=== PATIENT | male | born 1940 | race Caucasian/White ===

== ENCOUNTER 2018-07-04 22:53 | Inpatient (IN) | payer OTHER ==
[2018-07-04 23:28] LABS: Absolute Lymphocytes (CBC) 3.2 K/uL (0.7-4.9); Absolute Monocytes 0.9 K/uL (0.1-1.3); Basophils % 0.5 % (0-1.3); Eosinophils % 0.5 % (0-4.4); Hematocrit 46.9 % (39.6-49.0); Lymphocytes % 28.9 % (15.3-44.8); MCH 30.5 pg (27.0-35.0); MCV 91.5 fL (80-100); Monocytes % 7.7 % (3.3-12.3); RBC Red Blood Cell Count 5.13 M/uL (4.33-5.43)
[2018-07-04 23:29] LABS: Protime INR 0.97
[2018-07-04 23:38] LABS: Arterial Blood Carboxyhemoglob 1.3 % (0-1.5); Blood Gas Oxyhemoglobin 88.8 % (94-97); Blood O2 Saturation 90.9 % (92-98.5)
[2018-07-04 23:46] LABS: Albumin 3.7 g/dL (3.4-5.0); Bilirubin Direct 0.2 mg/dL (0-0.2); Bilirubin Total 0.5 mg/dL (0.2-1.0); Magnesium 2.3 mg/dL (1.8-2.4); Potassium 3.9 mmol/L (3.5-5.1); Troponin (Emerg Dept Use Only) 0.02 ng/mL (0.0-0.045)
--- NOTE | 2018-07-04 23:56 | ER ---
Nurse's Notes [facility] Name: John Jr Age: 77 yrs Sex: Male : 1940 Arrival Date: 07/04/2018 Time: 23:00 Bed 3 Private MD: Diagnosis: Dyspnea;Hypoxemia;Chronic obstructive pulmonary disease with (acute) exacerbation;Alcohol abuse with intoxication Presentation: 07/04 23:03 Presenting complaint: EMS states: he was drinking and started having shortness of bb breath. Transition of care: patient was not received from another setting of care. Onset of symptoms was July 04, 2018. Risk Assessment: Do you want to hurt yourself or someone else? Patient reports no desire to harm self or others. Initial Sepsis Screen: Does the patient meet any 2 criteria? RR > 20 per min. HR > 90 bpm. Yes Does the patient have a suspected source of infection? Yes:. Care prior to arrival: None. 23:03 Method Of Arrival: EMS: [facility] bb 23:03 Acuity: YAZMIN 2 bb Historical: - Allergies: 23:06 Iodine; bb - PMHx: 23:06 COPD; Gastric Reflux; bb - PSHx: 23:06 cardiac stent; Hernia repair; dental implants; bb - Immunization history:: Adult Immunizations unknown. - Social history:: Patient uses alcohol, patient/guardian reports recent binge of alcohol consumption. Smoking status: Patient/guardian denies using tobacco. - Family history:: not pertinent. - Ebola Screening: : No symptoms or risks identified at this time. Screenin:55 Abuse screen: Denies threats or abuse. Denies injuries from another. Nutritional aa1 screening: No deficits noted. Tuberculosis screening: No symptoms or risk factors identified. Fall Risk None identified. Assessment: 22:55 General: Appears in no apparent distress. uncomfortable, Behavior is appropriate for aa1 age, agitated. Pain: Denies pain. Neuro: Level of Consciousness is awake, alert, obeys commands, Oriented to person, place, time, situation, Moves all extremities. Speech is normal. Cardiovascular: Denies chest pain, palpitations, Heart tones S1 S2 present Rhythm is regular. Respiratory: Reports shortness of breath at rest labored breathing Airway is patent Respiratory effort is labored, pursed lip, Respiratory pattern is symmetrical, tachypnea Breath sounds with wheezes bilaterally. the patient has moderate shortness of breath. GI: No signs and/or symptoms were reported involving the gastrointestinal system. : No signs and/or symptoms were reported regarding the genitourinary system. EENT: No signs and/or symptoms were reported regarding the EENT system. Derm: Skin is intact, is healthy with good turgor, Skin is pink, warm \T\ dry. Musculoskeletal: Circulation, motion, and sensation intact. Capillary refill < 3 seconds, Range of motion: intact in all extremities. 23:30 Reassessment: Patient appears in no apparent distress at this time. Patient and/or aa1 family updated on plan of care and expected duration. Pain level reassessed. Pt reports his SOB has greatly improved Patient denies pain at this time. Patient states feeling better. 07/05 00:00 Reassessment: Patient appears in no apparent distress at this time. Patient and/or aa1 family updated on plan of care and expected duration. Pain level reassessed. Patient is alert, oriented x 3, equal unlabored respirations, skin warm/dry/pink. Awaiting admission orders. 00:20 Reassessment: Bed assignment received; awaiting admission orders from Dr. Zazueta. aa1 01:00 Reassessment: Patient appears in no apparent distress at this time. Patient and/or aa1 family updated on plan of care and expected duration. Pain level reassessed. Patient is alert, oriented x 3, equal unlabored respirations, skin warm/dry/pink. Still awaiting admission orders from Dr. Zazueta. 02:28 Reassessment: Patient appears in no apparent distress at this time. Patient and/or aa1 family updated on plan of care and expected duration. Pain level reassessed. Patient is alert, oriented x 3, equal unlabored respirations, skin warm/dry/pink. Pt still awaiting admission orders from Dr. Zazueta. refrigeration supervisor notified Dr. Zazueta and requested orders to be placed in [facility]. 03:14 Reassessment: Patient appears in no apparent distress at this time. Patient and/or aa1 family updated on plan of care and expected duration. Pain level reassessed. Patient is alert, oriented x 3, equal unlabored respirations, skin warm/dry/pink. Still awaiting admission orders. 04:00 Reassessment: report called to Queenie GIFFORD for room 409. bb Vital Signs: 07/04 23:06 BP 169 / 128; Pulse 125; Resp 22 S; Pulse Ox 86% ; Weight 86.18 kg (R); bb 23:06 Temp 97.2(TE); aa1 23:21 BP 117 / 65; Pulse 118; Resp 22; Pulse Ox 98% on 40% Venturi mask; Pain 0/10; aa1 07/05 00:30 BP 147 / 84; Pulse 108; Resp 20; Pulse Ox 97% on Nebulizer Mask; aa1 01:49 BP 171 / 85; Pulse 94; Resp 20; Pulse Ox 97% on 4 lpm NC; Pain 0/10; aa1 02:41 BP 158 / 84; Pulse 102; Resp 20; Temp 97.6; Pulse Ox 95% on 4 lpm NC; Pain 0/10; aa1 03:30 BP 151 / 83; Pulse 105; Resp 20; Pulse Ox 96% on 4 lpm NC; aa1 04:00 BP 158 / 99; Pulse 102; Resp 20; Pulse Ox 96% on 4 lpm NC; aa1 ED Course: 07/04 22:55 Patient arrived in ED. aa1 22:55 Patient has correct armband on for positive identification. Bed in low position. Call aa1 light in reach. office inspector on. Pulse ox on. NIBP on. Warm blanket given. 22:55 First set of blood cultures drawn by me. Initial lab(s) drawn, by me, sent to lab. aa1 Inserted saline lock: 20 gauge in right forearm, using aseptic technique. Blood collected. 22:55 Maintain EMS IV. Dressing intact. Site clean \T\ dry. Gauge \T\ site: 20g L hand. Oxygen aa 1 administration via Venturi mask \T\ 15L/min - 50%. 23:01 Mason Smith MD is Attending Physician. samantha 23:05 Triage completed. bb 23:06 Arm band placed on Patient placed in an exam room, on a stretcher, on oxygen, on bb manager photo, on pulse oximetry. 23:09 XRAY Chest (1 view) In Process Unspecified. EDMS 23:13 Second set of blood cultures drawn by me. aa1 23:19 Shruthi Dorman RN is Primary Nurse. aa1 23:20 EKG done, by ED staff, reviewed by Mason Smith MD. cc 23:54 Ricci Zazueta MD is Hospitalizing Provider. [facility] 07/05 00:31 No provider procedures requiring assistance completed. Patient admitted, IV remains in aa1 place. Administered Medications: 00:26 Drug: Pepcid 20 mg Route: IVP; Site: left forearm; aa1 01:20 Follow up: Response: No adverse reaction aa1 00:27 Drug: Albuterol - atroVENT (3:1) (2.5 mg - 0.5 mg) 3 ml Route: Nebulizer; aa1 01:30 Follow up: Response: No adverse reaction aa1 00:27 Drug: levofloxacin 500 mg Volume: 100 ml; Route: IVPB; Infused Over: 60 mins; Site: aa1 right forearm; 01:30 Follow up: IV Status: Completed infusion aa1 00:27 Drug: Thiamine 100 mg Route: IV; Rate: bolus; Site: left forearm; aa1 00:30 Follow up: IV Status: Completed infusion aa1 00:28 Not Given (given CUFF STITCHER by EMS): SOLU-Medrol 125 mg IVP once aa1 00:50 Drug: Lovenox 1 mg/kg Route: Sub-Q; Site: right lower abdomen; aa1 02:00 Follow up: Response: No adverse reaction aa1 00:50 Drug: Lasix 20 mg Route: IVP; Site: right forearm; aa1 04:49 Follow up: Urine output 1800 ml aa1 00:50 Drug: Potassium Effervescent Tablet 25 mEq Route: PO; aa1 02:00 Follow up: Response: No adverse reaction aa1 00:50 Drug: NS 0.9% 1000 ml Route: IV; Rate: 75 ml/hr; Site: right forearm; aa1 01:19 Follow up: IV Status: Infusion continued upon admission aa1 Output: 04:49 Urine: 1800ml; Total: 1800ml. aa1 Outcome: 07/04 23:55 Decision to Hospitalize by Provider. [facility] 07/05 04:01 Admitted to Tele accompanied by tech, via stretcher, room 409, with chart, Report bb called to Queenie GIFFORD Condition: stable Instructed on the need for admit. 04:48 Patient left the ED. aa1 Signatures: Dispatcher [employer] EDMS Shruthi Dorman RN RN aa1 Mason Smith MD MD cha Ballard, Brenda, RN RN bb Chelsea Michaels Corrections: (The following items were deleted from the chart) 07/04 23:21 23:00 Patient arrived in ED. albertina aa1
--- NOTE | 2018-07-04 23:56 | EDPHYS ---
Physician Documentation [facility] Name: Jonh Jr Age: 77 yrs Sex: Male : 1940 Arrival Date: 07/04/2018 Time: 23:00 Bed 3 Private MD: ED Physician Mason Smith HPI: 07/04 23:04 This 77 yrs old Male presents to ER via Unassigned with complaints of samantha Shortness Of Breath. 23:04 The patient has shortness of breath at rest, with light activity. Onset: The samantha symptoms/episode began/occurred just prior to arrival. Duration: The symptoms are continuous, and are steadily getting worse. The patient's shortness of breath has no apparent modifying factors. Associated signs and symptoms: The patient has no apparent associated signs or symptoms. Severity of symptoms: At their worst the symptoms were moderate in the emergency department the symptoms have improved moderately. The patient has experienced similar episodes in the past, several times. Historical: - Allergies: 23:06 Iodine; bb - PMHx: 23:06 COPD; Gastric Reflux; bb - PSHx: 23:06 cardiac stent; Hernia repair; dental implants; bb - Immunization history:: Adult Immunizations unknown. - Social history:: Patient uses alcohol, patient/guardian reports recent binge of alcohol consumption. Smoking status: Patient/guardian denies using tobacco. - Family history:: not pertinent. - Ebola Screening: : No symptoms or risks identified at this time. ROS: 23:05 Constitutional: Negative for fever, chills, and weight loss, Eyes: Negative for injury, samantha pain, redness, and discharge, ENT: Negative for injury, pain, and discharge, Neck: Negative for injury, pain, and swelling, Cardiovascular: Negative for chest pain, palpitations, and edema, Abdomen/GI: Negative for abdominal pain, nausea, vomiting, diarrhea, and constipation, Back: Negative for injury and pain, : Negative for injury, bleeding, discharge, and swelling, MS/Extremity: Negative for injury and deformity, Skin: Negative for injury, rash, and discoloration, Neuro: Negative for headache, weakness, numbness, tingling, and seizure, Psych: Negative for depression, anxiety, suicide ideation, homicidal ideation, and hallucinations, Allergy/Immunology: Negative for hives, rash, and allergies, Endocrine: Negative for neck swelling, polydipsia, polyuria, polyphagia, and marked weight changes, Hematologic/Lymphatic: Negative for swollen nodes, abnormal bleeding, and unusual bruising. 23:05 Respiratory: Positive for cough, shortness of breath, at rest. Exam: 23:05 Constitutional: This is a well developed, well nourished patient who is awake, alert, samantha and in no acute distress. Head/Face: Normocephalic, atraumatic. Eyes: Pupils equal round and reactive to light, extra-ocular motions intact. Lids and lashes normal. Conjunctiva and sclera are non-icteric and not injected. Cornea within normal limits. Periorbital areas with no swelling, redness, or edema. ENT: Nares patent. No nasal discharge, no septal abnormalities noted. Tympanic membranes are normal and external auditory canals are clear. Oropharynx with no redness, swelling, or masses, exudates, or evidence of obstruction, uvula midline. Mucous membranes moist. Neck: Trachea midline, no thyromegaly or masses palpated, and no cervical lymphadenopathy. Supple, full range of motion without nuchal rigidity, or vertebral point tenderness. No Meningismus. Chest/axilla: Normal chest wall appearance and motion. Nontender with no deformity. No lesions are appreciated. Cardiovascular: Regular rate and rhythm with a normal S1 and S2. No gallops, murmurs, or rubs. Normal PMI, no JVD. No pulse deficits. Abdomen/GI: Soft, non-tender, with normal bowel sounds. No distension or tympany. No guarding or rebound. No evidence of tenderness throughout. Back: No spinal tenderness. No costovertebral tenderness. Full range of motion. Male : Normal genitalia with no discharge or lesions. Skin: Warm, dry with normal turgor. Normal color with no rashes, no lesions, and no evidence of cellulitis. MS/ Extremity: Pulses equal, no cyanosis. Neurovascular intact. Full, normal range of motion. Neuro: Awake and alert, GCS 15, oriented to person, place, time, and situation. Cranial nerves II-XII grossly intact. Motor strength 5/5 in all extremities. Sensory grossly intact. Cerebellar exam normal. Normal gait. Psych: Awake, alert, with orientation to person, place and time. Behavior, mood, and affect are within normal limits. 23:05 Respiratory: mild respiratory distress is noted, Respirations: labored breathing, that is mild, Breath sounds: decreased breath sounds, rhonchi, wheezing: expiratory is scattered. 07/05 00:00 Musculoskeletal/extremity: DVT Exam: No signs of deep vein thrombosis. no pain, no samantha swelling, no tenderness, negative Homans' sign noted on exam, no appreciated bluish discoloration, no erythema, no increased warmth. Vital Signs: 07/04 23:06 BP 169 / 128; Pulse 125; Resp 22 S; Pulse Ox 86% ; Weight 86.18 kg (R); bb 23:06 Temp 97.2(TE); aa1 23:21 BP 117 / 65; Pulse 118; Resp 22; Pulse Ox 98% on 40% Venturi mask; Pain 0/10; aa1 07/05 00:30 BP 147 / 84; Pulse 108; Resp 20; Pulse Ox 97% on Nebulizer Mask; aa1 01:49 BP 171 / 85; Pulse 94; Resp 20; Pulse Ox 97% on 4 lpm NC; Pain 0/10; aa1 02:41 BP 158 / 84; Pulse 102; Resp 20; Temp 97.6; Pulse Ox 95% on 4 lpm NC; Pain 0/10; aa1 03:30 BP 151 / 83; Pulse 105; Resp 20; Pulse Ox 96% on 4 lpm NC; aa1 04:00 BP 158 / 99; Pulse 102; Resp 20; Pulse Ox 96% on 4 lpm NC; aa1 MDM: 07/04 23:02 Patient medically screened. [facility] 23:07 Data reviewed: vital signs, nurses notes, lab test result(s), EKG, radiologic studies, [facility] plain films. 07/04 23:04 Order name: Basic Metabolic Panel; Complete Time: 23:49 [facility] 07/04 23:04 Order name: CBC with Diff; Complete Time: 23:49 [facility] 07/04 23:04 Order name: LFT's; Complete Time: 23:49 [facility] 07/04 23:04 Order name: Magnesium; Complete Time: 23:49 [facility] 07/04 23:04 Order name: NT PRO-BNP; Complete Time: 23:49 [facility] 07/04 23:04 Order name: PT-INR; Complete Time: 23:59 [facility] 07/04 23:04 Order name: Troponin (emerg Dept Use Only); Complete Time: 23:49 [facility] 07/04 23:04 Order name: XRAY Chest (1 view) [facility] 07/04 23:04 Order name: ETOH Level; Complete Time: 23:49 [facility] 07/04 23:04 Order name: Blood Culture Adult (2) [facility] 07/04 23:04 Order name: Procalcitonin [facility] 07/04 23:04 Order name: ABG; Complete Time: 23:49 [facility] 07/05 00:00 Order name: D-Dimer; Complete Time: 00:45 [facility] 07/05 03:37 Order name: Urine Dipstick--Ancillary (enter results) nd 07/04 23:04 Order name: EKG; Complete Time: 23:05 [facility] 07/04 23:04 Order name: Cardiac monitoring; Complete Time: 23:20 [facility] 07/04 23:04 Order name: EKG - Nurse/Tech; Complete Time: 23:20 [facility] 07/04 23:04 Order name: IV Saline Lock; Complete Time: 23:20 [facility] 07/04 23:04 Order name: Labs collected and sent; Complete Time: 23:20 [facility] 07/04 23:59 Order name: CONS Physician Consult [facility] 07/05 00:45 Order name: VQ scan (Nuclear Medicine) [facility] 07/04 23:04 Order name: O2 Per Protocol; Complete Time: 23:20 [facility] 07/04 23:04 Order name: O2 Sat Monitoring; Complete Time: 23:20 [facility] Administered Medications: 07/05 00:26 Drug: Pepcid 20 mg Route: IVP; Site: left forearm; aa1 01:20 Follow up: Response: No adverse reaction aa1 00:27 Drug: Albuterol - atroVENT (3:1) (2.5 mg - 0.5 mg) 3 ml Route: Nebulizer; aa1 01:30 Follow up: Response: No adverse reaction aa1 00:27 Drug: levofloxacin 500 mg Volume: 100 ml; Route: IVPB; Infused Over: 60 mins; Site: aa1 right forearm; 01:30 Follow up: IV Status: Completed infusion aa1 00:27 Drug: Thiamine 100 mg Route: IV; Rate: bolus; Site: left forearm; aa1 00:30 Follow up: IV Status: Completed infusion aa1 00:28 Not Given (given POTATO INSPECTOR by EMS): SOLU-Medrol 125 mg IVP once aa1 00:50 Drug: Lovenox 1 mg/kg Route: Sub-Q; Site: right lower abdomen; aa 02:00 Follow up: Response: No adverse reaction aa 00:50 Drug: Lasix 20 mg Route: IVP; Site: right forearm; aa1 04:49 Follow up: Urine output 1800 ml aa 00:50 Drug: Potassium Effervescent Tablet 25 mEq Route: PO; aa 02:00 Follow up: Response: No adverse reaction aa 00:50 Drug: NS 0.9% 1000 ml Route: IV; Rate: 75 ml/hr; Site: right forearm; aa 01:19 Follow up: IV Status: Infusion continued upon admission aa1 Disposition: 07/04/18 23:55 Hospitalization ordered by Ricci Zazueta for Inpatient Admission. Preliminary diagnosis are Dyspnea, Hypoxemia, Chronic obstructive pulmonary disease with (acute) exacerbation, Alcohol abuse with intoxication. - Bed requested for Telemetry/MedSurg (Inpatient). - Status is Inpatient Admission. aa1 - Condition is Stable. - Problem is new. - Symptoms have improved. UTI on Admission? No Signatures: Dispatcher [employer] EDMS Payton Mendoza RN RN Shruthi Dorman RN RN aa1 Mason Smith MD MD cha Ballard, Brenda, RN RN bb Corrections: (The following items were deleted from the chart) 00:07/04 23:55 Hospitalization Ordered by Ricci Zazueta MD for Inpatient Admission. Preliminary diagnosis is Dyspnea; Hypoxemia; Chronic obstructive pulmonary disease with (acute) exacerbation; Alcohol abuse with intoxication. Bed requested for Telemetry/MedSurg (Inpatient). Status is Inpatient Admission. Condition is Stable. Problem is new. Symptoms have improved. UTI on Admission? No. samantha 07/05 04:48 00:02 07/04/2018 23:55 Hospitalization Ordered by Ricci Zazueta MD for Inpatient aa1 Admission. Preliminary diagnosis is Dyspnea; Hypoxemia; Chronic obstructive pulmonary disease with (acute) exacerbation; Alcohol abuse with intoxication. Bed requested for Telemetry/MedSurg (Inpatient). Status is Inpatient Admission. Condition is Stable. Problem is new. Symptoms have improved. UTI on Admission? No. jacki
[2018-07-05] MEDS ORDERED: THIAMINE 200 MG/2 ML INJ ONE (00:22)
[2018-07-05] MEDS ORDERED: FAMOTIDINE 20 MG/2 ML VIAL IV ONE (00:22)
[2018-07-05] MEDS ORDERED: ALBUTEROL 2.5 MG/3 ML NEB SOL ONE (00:22)
[2018-07-05] MEDS ORDERED: Levofloxacin500mg IV 500 MG/100 ML BAG IV ONE (00:22)
[2018-07-05] MEDS ORDERED: IPRATROPIUM BROM 0.5MG/2.5ML ONE (00:22)
[2018-07-05] MEDS ORDERED: FUROSEMIDE 20 MG/ 2ML VIAL ONE (00:50)
[2018-07-05] MEDS ORDERED: POTASSIUM 25 MEQ EFFERV TAB ONE (00:51)
[2018-07-05] MEDS ORDERED: NA CHLORIDE 0.9% 1,000 ML ONE (00:51)
[2018-07-05] MEDS ORDERED: ENOXAPARIN 100 MG/ML SYR SQ ONE (00:51)
[2018-07-05] MEDS ORDERED: ACETAMINOPHEN 500 MG TAB PO PRN (02:57)
[2018-07-05] MEDS ORDERED: ONDANSETRON 4 MG/2 ML VIAL IV PRN (02:57)
[2018-07-05] MEDS ORDERED: MORPHINE 2 MG/ML SYR IV PRN (02:57)
[2018-07-05] MEDS ORDERED: NA CHLORIDE 0.9% 1,000 ML IV SCH (03:00)
[2018-07-05 05:10] LABS: Urine Blood NEGATIVE (NEG); Urine Glucose NEGATIVE (NEG); Urine Protein NEGATIVE (NEG)
[2018-07-05 05:22] VITALS: BMI 24.5
[2018-07-05] MEDS: METHYLPREDNISOLONE 125 MG INJ IV SCH ×3 (06:50→17:38)
[2018-07-05] MEDS ORDERED: MORPHINE 4 MG/ML SYR IV PRN (07:17)
[2018-07-05] MEDS ORDERED: HOME MED 1 EA UNK (Ipratropium/Albuterol Sulfate [Combivent Respimat 20-100 Mcg] 1 PUFF) IH PRN (07:54)
[2018-07-05] MEDS ORDERED: ALBUTEROL 2.5 MG/3 ML NEB SOL NEB SCH (08:00)
[2018-07-05] MEDS ORDERED: INFLUENZA VACCINE (for 3y+) 0.5 ML DOSE IMVAC ONE (08:00)
[2018-07-05] MEDS: IPRATROPIUM BROM 0.5MG/2.5ML NEB SCH ×3 (08:08→19:51)
[2018-07-05] MEDS ORDERED: FLUTICASONE IH SCH (09:00)
[2018-07-05] MEDS ORDERED: SALMETEROL IH SCH (09:00)
[2018-07-05] MEDS ORDERED: CEFTRIAXONE/SWI 1gm 1 GM/10 ML SYR IV SCH (09:00)
[2018-07-05] MEDS ORDERED: FAMOTIDINE 20 MG/2 ML VIAL IV SCH (09:00)
[2018-07-05] MEDS ORDERED: FAMOTIDINE 20 MG TAB PO SCH (09:00)
[2018-07-05] MEDS ORDERED: CEFTRIAXONE 1 GM/NS 50 ML 1 GM/50 ML BAG IV SCH (09:00)
[2018-07-05] MEDS: ASPIRIN EC 81 MG TAB PO SCH (10:53)
--- NOTE | 2018-07-05 11:12 | RAD REPORT ---
EXAM DESCRIPTION: US - Extrem Venous W Compress Cong - 07/05/2018 10:56 am CLINICAL HISTORY: pain Bilateral leg edema and swelling. COMPARISON: No comparisons TECHNIQUE: Real-time sonographic interrogation of the left and right lower extremity deep venous sys tems was performed. FINDINGS: Normal compressibility, flow augmentation, phasic flow and spontaneous flow is identified in both the left and right lower extremity deep venous systems. IMPRESSION: No sonographic evidence of left or right lower extremity deep venous thrombosis.
--- NOTE | 2018-07-05 11:12 | RAD REPORT ---
EXAM DESCRIPTION: NM - Vent Perfusion VQ Scan - 07/05/2018 10:24 am CLINICAL HISTORY: sob COMPARISON: Vent Perfusion VQ Scan dated 10/01/2016 TECHNIQUE: 21.2mCi Xe-133 gas inhaled and 7mCi Tc-MAA IV. Planar ventilation scan was performed in posterior projection after Xe-133 gas inhalation (wash-in, e quilibrium, and wash-out phases) followed by perfusion scan with Tc-MAA IV in multiple projections. Examination is correlated with recent chest radiograph. FINDINGS: Normal ventilation with appropriate wash-out and no significant air-trapping. No mismatched segmental perfusion defect. Heterogenous perfusion pattern is again noted, unchanged. IMPRESSION: Low probability of acute pulmonary embolism.
--- NOTE | 2018-07-05 11:16 | RAD REPORT ---
EXAM DESCRIPTION: RAD - Chest Single View - 07/04/2018 11:33 pm CLINICAL HISTORY: COUGH Chest pain. COMPARISON: Chest Pa And Lat (2 Views) dated 05/07/2017; Chest Single View dated 10/01/2016; CHEST PA AND LAT 2 VIEW dated 11/23/2009; CHEST PA AND LAT 2 VIEW dated 02/17/2004 FINDINGS: Portable technique limits examination quality. Ill-defined scarring/ fibrosis is suspected in both lung bases. Emphysematous changes are noted. A de finitive focal infiltrate not seen. The heart is upper limit normal in size. No displaced fractures. IMPRESSION: Fibrotic changes in both lung bases.
--- NOTE | 2018-07-05 11:25 | P.HP ---
Certification for Inpatient Patient admitted to: Inpatient With expected LOS: >2 Midnights Patient will require the following post-hospital care: None Practitioner: I am a practitioner with admitting privileges, knowledge of patient current condition, hospital course, and medical plan of care. Services: Services provided to patient in accordance with Admission requirements found in Title 42 Section 412.3 of the Code of Federal Regulations Patient History Date of Service: 07/05/18 Reason for admission: Shortness of breath History of Present Illness: Patient is a 77-year-old gentleman who presents to the hospital because he has noticed that he had some rattling in his chest. He has been on inhalers including Breo and Combivent for a few months. He has also been on prednisone since November. Patient has tried to wean himself off but he continues to have recurrent flare ups. He had weaned his prednisone down to 2 mg, then he started becoming more short of breath so he increased the prednisone on his own to 10 mg. Currently he is using a tapering dose of 10 mg then alternating it with 5 mg. Patient has a history of pulmonary fibrosis and his last pulmonary function test was about a year ago. He also had a MRI of his lungs to further evaluate his pulmonary situation. He also gets pulmonary rehab at [place]. Patient will need admission to the hospital for further treatment. Allergies iodine Allergy (Severe, Verified 09/07/15 11:56) Anaphylaxis Home Medications: Aspirin [Aspirin EC 81 MG] 162 mg PO DAILY 10/01/16 Famotidine 1 tab PO DAILY 10/01/16 Fluticasone/Salmeterol [Advair Hfa 115-21 Mcg Inhaler] 2 puff IH BID 10/01/16 Ipratropium/Albuterol Sulfate [Combivent Respimat 20-100 Mcg] 1 puff IH TID PRN 10/01/16 levoFLOXacin [Levaquin*] 500 mg PO DAILY #7 tab 10/03/16 - Past Medical/Surgical History Has patient received pneumonia vaccine in the past: Yes Diabetic: No -: COPD -: reflux -: stroke -: cardiac stents -: hernia repair -: dental implant -: skin cancer removed from back - Family History Sister Medical History: Hypertension Mother Medical History: Lung disease Notes: copd - Social History Smoking Status: Former smoker Alcohol use: Yes CD- Drugs: No Caffeine use: Yes Place of Residence: Home Review of Systems 10-point ROS is otherwise unremarkable Physical Examination - Vital Signs Temperature: 97.9 F Blood Pressure: 119/83 Pulse: 112 Respirations: 16 Pulse Ox (%): 94 - Physical Exam General: Alert, In no apparent distress, Oriented x3 HEENT: Atraumatic, PERRLA, Mucous membr. moist/pink, EOMI, Sclerae nonicteric Neck: Supple, 2+ carotid pulse no bruit, No LAD, Without JVD or thyroid abnormality Respiratory: Diminished, Expiratory wheezes, Rhonchi/gurgles Cardiovascular: Regular rate/rhythm, Normal S1 S2, No murmurs Gastrointestinal: Normal bowel sounds, Soft and benign, Non-distended, No tenderness Musculoskeletal: No clubbing, No swelling, No tenderness, Swelling Integumentary: No rashes, No breakdown Neurological: Normal gait, Normal speech, Normal strength at 5/5 x4 extr, Normal tone, Normal affect Lymphatics: No axilla or inguinal lymphadenopathy - Studies Laboratory Data (last 24 hrs) 07/04/18 23:04: PT 11.5, INR 0.97 07/04/18 22:55: WBC 11.1 H, Hgb 15.6, Hct 46.9, Plt Count 223 07/04/18 22:55: Sodium 139, Potassium 3.9, BUN 21 H, Creatinine 1.20, Glucose 148 H, Magnesium 2.3, Total Bilirubin 0.5, AST 19, ALT 24, Alkaline Phosphatase 42 L Assessment & Plan - Problems (Diagnosis) (1) COPD with acute exacerbation Current Visit: Yes Status: Acute (2) Idiopathic pulmonary fibrosis Current Visit: Yes Status: Acute (3) Chronic steroid use Current Visit: Yes Status: Acute (4) Hypoxia Onset Date: 10/02/16 Current Visit: No Status: Acute (5) Pneumonia Onset Date: 10/02/16 Current Visit: No Status: Acute (6) Alcohol use Current Visit: Yes Status: Acute - Plan 1. Continue with IV antibiotics 2. Awaiting blood culture 3. Repeat chest x-ray 4. Echocardiogram and pulmonary function testing as an outpatient 5. Awaiting Pulmonary consultation for this morning 6. Continue with nebs as needed 7. O2 per protocol 8. Continue with gentle hydration 9. Repeat labs including CBC and renal function in a.m. 10. GI and DVT prophylaxis Discharge Plan: Home Plan to discharge in: 24 Hours - Advance Directives Does patient have a Living Will: No Does patient have a Durable POA for Healthcare: No - Code Status/Comfort Care Code Status Assessed: Yes Code Status: Full Code Critical Care: No Time Spent Managing PTS Care (In Minutes): 50
[2018-07-05 12:11] LABS: Absolute Lymphocytes (CBC) 0.2 K/uL (0.7-4.9); Absolute Monocytes 0.1 K/uL (0.1-1.3); Absolute Neutrophil 5.1 K/uL (1.8-8.0); Basophils % 0.2 % (0-1.3); Hematocrit 36.4 % (39.6-49.0); MCH 30.9 pg (27.0-35.0); MCV 91.8 fL (80-100); MPV 8.2 fL (7.6-11.3); RBC Red Blood Cell Count 3.96 M/uL (4.33-5.43)
[2018-07-05 12:51] LABS: Blood Morphology Comment NOT SEEN (NOT SEEN); Platelet Estimate ADEQ; Urine White Blood Cell Casts OK
[2018-07-05 13:10] LABS: BUN Blood Urea Nitrogen 18 mg/dL (7-18); Bicarbonate 15 mmol/L (21-32); Glucose Level 158 mg/dL (74-106); Magnesium 1.2 mg/dL (1.8-2.4); Phosphorus 1.8 mg/dL (2.5-4.9); Sodium Level 147 mmol/L (136-145)
[2018-07-05 13:32] LABS: Potassium 2.8 mmol/L (3.5-5.1)
[2018-07-05] MEDS ORDERED: Magnesium Sulfate 2gm IVPB 2 G/50 ML BAG IV ONE (13:37)
[2018-07-05] MEDS ORDERED: CALCIUM GLUC 10% INJ 9.3 MEQ in NA CHLORIDE 0.9% 100 ML IV ONE (14:00)
[2018-07-05] MEDS: LEVALBUTEROL 0.63 MG/3 ML NEB NEB SCH ×2 (14:12→19:51)
[2018-07-05] MEDS: KCL 20 MEQ/100 mL IVPB 20 MEQ/100 ML BAG IV SCH ×3 (14:13→17:03)
[2018-07-05] MEDS ORDERED: POTASSIUM 25 MEQ EFFERV TAB PO ONE (17:03)
[2018-07-05] MEDS ORDERED: ENOXAPARIN 80 MG/0.8 ML SQ SCH (18:00)
[2018-07-05] MEDS: ARFORMOTEROL TARTRATE 15 MCG/2 ML VIAL.NEB NEB SCH (19:50)
[2018-07-05] MEDS ORDERED: METOPROLOL TAR 25 MG TAB PO ONE (20:54)
[2018-07-05] MEDS ORDERED: TEMAZEPAM 15 MG CAP PO PRN (21:03)
[2018-07-05 22:04] LABS: Absolute Lymphocytes (CBC) 0.4 K/uL (0.7-4.9); Absolute Monocytes 0.2 K/uL (0.1-1.3); Absolute Neutrophil 6.8 K/uL (1.8-8.0); Basophils % 0.1 % (0-1.3); Hematocrit 43.8 % (39.6-49.0); Lymphocytes % 5.3 % (15.3-44.8); MCH 30.5 pg (27.0-35.0); MCV 90.2 fL (80-100); MPV 8.1 fL (7.6-11.3); Protime INR 0.94; RBC Red Blood Cell Count 4.86 M/uL (4.33-5.43)
[2018-07-05 22:09] LABS: Albumin 3.5 g/dL (3.4-5.0); Bilirubin Total 0.5 mg/dL (0.2-1.0); Magnesium 2.8 mg/dL (1.8-2.4); Phosphorus 2.1 mg/dL (2.5-4.9); Potassium 4.8 mmol/L (3.5-5.1); Protein, Total 6.4 g/dL (6.4-8.2)
[2018-07-06] MEDS: LEVALBUTEROL 0.63 MG/3 ML NEB NEB SCH ×3 (01:13→13:47)
[2018-07-06] MEDS: IPRATROPIUM BROM 0.5MG/2.5ML NEB SCH ×3 (01:13→13:47)
[2018-07-06 05:44] LABS: Absolute Lymphocytes (CBC) 0.5 K/uL (0.7-4.9); Absolute Monocytes 0.3 K/uL (0.1-1.3); Absolute Neutrophil 7.7 K/uL (1.8-8.0); Basophils % 0.1 % (0-1.3); Hematocrit 40.6 % (39.6-49.0); MCH 31.2 pg (27.0-35.0); MCV 89.4 fL (80-100); MPV 8.3 fL (7.6-11.3); Monocytes % 3.7 % (3.3-12.3); RBC Red Blood Cell Count 4.54 M/uL (4.33-5.43)
[2018-07-06] MEDS ORDERED: FUROSEMIDE 40 MG/4 ML VIAL IV SCH ×2 (06:00→09:00)
[2018-07-06] MEDS ORDERED: METOPROLOL TAR 25 MG TAB PO SCH (06:00)
[2018-07-06] MEDS: METHYLPREDNISOLONE 125 MG INJ IV SCH ×3 (06:00→06:05)
[2018-07-06 06:01] LABS: Albumin 3.2 g/dL (3.4-5.0); Bilirubin Total 0.5 mg/dL (0.2-1.0); Potassium 4.5 mmol/L (3.5-5.1); Protein, Total 5.9 g/dL (6.4-8.2)
[2018-07-06] MEDS: LOSARTAN POTASSIUM 50 MG TABLET PO SCH ×2 (06:05→09:06)
--- NOTE | 2018-07-06 06:49 | EKG ---
Test Date: 2018-07-04 Test Time: 23:17:22 Tread Tuber Machine Operator: AISHWARYA MEASUREMENT RESULTS: Intervals: Rate: 108 CT: 156 QRSD: 88 QT: 360 QTc: 482 [place]: P: 86 CT: 156 QRS: 116 T: -13 INTERPRETIVE STATEMENTS: Sinus tachycardia with occasional premature ventricular complexes Possible Left atrial enlargement Right axis deviation Pulmonary disease pattern Septal infarct, age undetermined ST & T wave abnormality, consider inferior ischemia Abnormal ECG Compared to ECG 10/01/2016 07:15:49 Ventricular premature complex(es) now present Myocardial infarct finding still present Electronically Signed On 07-06-18 06:49:37 CDT by Ankit Sommer
[2018-07-06] MEDS: ARFORMOTEROL TARTRATE 15 MCG/2 ML VIAL.NEB NEB SCH (07:16)
--- NOTE | 2018-07-06 08:48 | P.CNS ---
Date of Consult: 07/06/18 Reason for Consult: Shortness of breath Chief Complaint: Shortness of breath History of Present Illness: Patient is 77 years of age well known to me with a history of COPD apparently he slipped and was unable to get his oxygen back up called EMS was admitted he is on chronic prednisone therapy 10 mg alternating with 5 currently taking Breo which is helping him. Arm for the past 3 months he has not been out of the house he has also chronic dizziness was diagnosed with orthostatic hypotension also has some tinnitus denies any fever or chills is back to his baseline Allergies iodine Allergy (Severe, Verified 09/07/15 11:56) Anaphylaxis Home Medications: Aspirin [Aspirin EC 81 MG] 162 mg PO DAILY 10/01/16 Famotidine 1 tab PO DAILY 10/01/16 Fluticasone/Vilanterol [Breo Ellipta 200-25 Mcg INH] 1 each IH DAILY 07/05/18 Olopatadine HCl 1 puff IH BID PRN 07/05/18 Umeclidinium [place] [Incruse Ellipta] 1 puff IH Q24H 07/05/18 predniSONE [Prednisone*] 1 mg PO DAILY 07/05/18 - Past Medical/Surgical History Diabetic: No -: COPD -: reflux -: stroke -: cardiac stents -: hernia repair -: dental implant -: skin cancer removed from back - Family History Sister Medical History: Hypertension Mother Medical History: Lung disease Notes: copd - Social History Alcohol use: Yes CD- Drugs: No Caffeine use: Yes Place of Residence: Home Review of Systems 10-point ROS is otherwise unremarkable Physical Examination Temp Pulse Resp BP Pulse Ox 97.5 F 94 H 20 183/83 H 92 07/06/18 04:00 07/06/18 06:22 07/06/18 04:00 07/06/18 06:22 07/06/18 04:00 General: Alert, Oriented x3 HEENT: Atraumatic Neck: Supple Respiratory: Clear to auscultation bilaterally, Diminished Cardiovascular: No edema, Regular rate/rhythm, Normal S1 S2 Gastrointestinal: Normal bowel sounds, Soft and benign - Problems (1) COPD with acute exacerbation Current Visit: Yes Status: Acute Plan: Patient is 77 years of age admitted with an exacerbation of his underlying COPD labs reviewed no evidence of thromboembolism no evidence of sepsis oxygenation satisfactory change management manager to p.o. prednisone 10 mg twice a day Dc metoprolol had spironolactone possible discharge today continue with Breo history of chronic dizziness check orthostatics changes
[2018-07-06 08:53] VITALS: BP 149/71; TEMP 97.1
[2018-07-06] MEDS ORDERED: predniSONE 10 MG TAB PO SCH (09:00)
[2018-07-06] MEDS ORDERED: SPIRONOLACTONE 25 MG TABLET PO SCH (09:00)
[2018-07-06] MEDS: ASPIRIN EC 81 MG TAB PO SCH (09:06)
--- NOTE | 2018-07-06 12:04 | P.PN ---
Subjective Date of Service: 07/06/18 Chief Complaint: Shortness of breath Pt seen and examined at bedside with RN. Chart reviewed. Case DW with Pulmonology. Pt is currently angry due to having small food portion on the plate. he has been unhappy with the cafeteria system here. Breathing better than before. Review of Systems 10-point ROS is otherwise unremarkable Physical Examination - Vital Signs Temperature: 97.1 F Blood Pressure: 149/71 Pulse: 88 Respirations: 18 Pulse Ox (%): 91 - Physical Exam General: Alert, In no apparent distress HEENT: Atraumatic, PERRLA, EOMI Neck: Supple, JVD not distended Respiratory: Normal air movement, Expiratory wheezes, Inspiratory wheezes Cardiovascular: Regular rate/rhythm, Normal S1 S2 Gastrointestinal: Normal bowel sounds, No tenderness Musculoskeletal: Other (Right Hand Petechial Brusing noted. ) Integumentary: No rashes Neurological: Normal speech, Normal tone, Normal affect Lymphatics: No axilla or inguinal lymphadenopathy - Studies Medications List Reviewed: Yes Assessment And Plan - Current Problems (Diagnosis) (1) COPD with acute exacerbation Current Visit: Yes Status: Acute Plan: Acute COPD exacerbation with chronic Disease with Home oxygen. -Sariah Shepherd Steriods and Oxygen for now -Pulmonology consulted appreciate reccs -Pt uses 4L NC at home and currently on 6L here with oxygen sat at 87% at rest and dropped to 80% on excretion -Will try to wean as tolerated to 4L NC (2) Idiopathic pulmonary fibrosis Current Visit: Yes Status: Chronic (3) Alcohol use Current Visit: Yes Status: Chronic Discharge Plan: Home Plan to discharge in: 48 Hours - Code Status/Comfort Care Code Status Assessed: Yes Critical Care: No
--- NOTE | 2018-07-06 12:57 | ECHO ---
HEIGHT: 6 ft 0 in WEIGHT: 181 lb 6.4 oz DATE OF STUDY: 07/06/[address]: Mason Smith MD 2-DIMENSIONAL: YES M.MODE: YES DOPPLER: YES COLOR FLOW: YES TDS: NO PORTABLE: NO DEFINITY: NO BUBBLE STUDY: NO DIAGNOSIS: SHORTNESS OF BREATH CARDIAC HISTORY: CATHERIZATION: NO SURGERY: NO PROSTHETIC VALVE: NO PACEMAKER: NO MEASUREMENTS (cm) DIASTOLIC (NORMALS) SYSTOLIC (NORMALS) IVSd 1.0 (0.6-1.2) LA Diam 3.5 (1.9-4.0) LVEF 63% LVIDd 3.6 (3.5-5.7) LVIDs 2.4 (2.0-3.5) %FS 33% LVPWd 1.1 (0.6-1.2) Ao Diam 3.2 (2.0-3.7) 2 DIMENSIONAL ASSESSMENT: RIGHT ATRIUM: NORMAL LEFT ATRIUM: NORMAL RIGHT VENTRICLE: NORMAL LEFT VENTRICLE: NORMAL TRICUSPID VALVE: NORMAL MITRAL VALVE: NORMAL PULMONIC VALVE: NORMAL AORTIC VALVE: NORMAL PERICARDIAL EFFUSION: NONE AORTIC ROOT: NORMAL LEFT VENTRICULAR WALL MOTION: NORMAL. DOPPLER/COLOR FLOW: MILD TRICUSPID REGURGITATION. ESTMATED RIGHT VENTRICULAR SYSTOLIC PRESSURE 40mmHg. (MILD PULMONARY HYPERTENSION). COMMENTS: NORMAL LEFT VENTRICULAR EJECTION FRACTION. MILD TRICUSPID REGURGITATION. OTHERWISE NORMAL 2D ECHO WITH DOPPLER. TECHNOLOGIST: LESTER MERAZ
[2018-07-06 14:14] VITALS: O2SAT 96
--- NOTE | 2018-07-17 17:27 | P.SSS ---
Patient History Date of Service: 07/17/18 Reason for admission: Shortness of breath History of Present Illness: Patient is a 77-year-old gentleman who presents to the hospital because he has noticed that he had some rattling in his chest. He has been on inhalers including Breo and Combivent for a few months. He has also been on prednisone since November. Patient has tried to wean himself off but he continues to have recurrent flare ups. He had weaned his prednisone down to 2 mg, then he started becoming more short of breath so he increased the prednisone on his own to 10 mg. Currently he is using a tapering dose of 10 mg then alternating it with 5 mg. Patient has a history of pulmonary fibrosis and his last pulmonary function test was about a year ago. He also had a MRI of his lungs to further evaluate his pulmonary situation. He also gets pulmonary rehab at [place]. Patient will need admission to the hospital for further treatment. Allergies iodine Allergy (Severe, Verified 09/07/15 11:56) Anaphylaxis Home Medications: Aspirin [Aspirin EC 81 MG] 162 mg PO DAILY 10/01/16 Famotidine 1 tab PO DAILY 10/01/16 Fluticasone/Vilanterol [Breo Ellipta 200-25 Mcg INH] 1 each IH DAILY 07/05/18 Olopatadine HCl 1 puff IH BID PRN 07/05/18 Umeclidinium [place] [Incruse Ellipta] 1 puff IH Q24H 07/05/18 predniSONE [Prednisone*] 1 mg PO DAILY 07/05/18 - Past Medical/Surgical History Has patient received pneumonia vaccine in the past: Yes Diabetic: No -: COPD -: reflux -: stroke -: cardiac stents -: hernia repair -: dental implant -: skin cancer removed from back - Family History Sister -: Hypertension Mother -: Lung disease Notes: copd - Social History Smoking Status: Former smoker Alcohol use: Yes CD- Drugs: No Caffeine use: Yes Place of Residence: Home Review of Systems 10-point ROS is otherwise unremarkable Physical Examination - Vital Signs Temperature: 97.1 F Blood Pressure: 149/71 Pulse: 88 Respirations: 18 Pulse Ox (%): 91 - Physical Exam General: Alert, In no apparent distress HEENT: Atraumatic, PERRLA, Mucous membr. moist/pink, EOMI, Sclerae nonicteric Neck: Supple, 2+ carotid pulse no bruit, No LAD, Without JVD or thyroid abnormality Respiratory: Normal air movement, Crackles/rales, Expiratory wheezes, Inspiratory wheezes Cardiovascular: Regular rate/rhythm, Normal S1 S2 Gastrointestinal: Normal bowel sounds, No tenderness Musculoskeletal: No tenderness Integumentary: No rashes Neurological: Normal gait, Normal speech, Normal strength at 5/5 x4 extr, Normal tone, Normal affect Lymphatics: No axilla or inguinal lymphadenopathy - Diagnosis (Problem(s)) (1) COPD with acute exacerbation Onset Date: 07/06/18 Status: Acute Plan: Acute COPD exacerbation with chronic Disease with Home oxygen. -Sariah Shepherd, Kristie and Oxygen for now -Pulmonology consulted appreciate reccs -Pt uses 4L NC at home and currently on 6L here with oxygen sat at 87% at rest and dropped to 80% on excretion -Will try to wean as tolerated to 4L NC Patient left AMA (2) Idiopathic pulmonary fibrosis Onset Date: 07/06/18 Status: Chronic (3) Alcohol use Onset Date: 07/06/18 Status: Chronic - Disposition Disposition: AMA-LEFT AGAINST MEDICAL ADVIC
== END 2018-07-06 17:24 | disposition left against medical advice (07) | DRG 192 ==
LOC: ER 22:53 → ERHOLD 07-05 00:07 → 4TH 07-05 04:03
PROVIDERS: ADMIT Hospitalist; ATTEND Hospitalist
DX: J44.1 Chronic obstructive pulmonary disease with (acute) exacerbation (principal); J84.112 Idiopathic pulmonary fibrosis; Z86.73 Personal history of transient ischemic attack (TIA), and cerebral infarction without residual deficits; Z99.81 Dependence on supplemental oxygen; Z87.891 Personal history of nicotine dependence; Z79.82 Long term (current) use of aspirin; Z79.52 Long term (current) use of systemic steroids
CPT/HCPCS: 36415; 71045; 78582; 80048; 80053; 80076; 80320; 81003; 82805; 83036; 83735; 83880; 84100; 84145; 84484; 85025; 85379; 85610; 85730; 87040; 93005; 93306; 93970; 94640; 96372; 97163; 99285; A9540; A9558; J0610; J0696; J1650; J1940; J2270; J2930; J3411; J3475; J7030; J7512; J7605

== ENCOUNTER 2019-10-17 21:16 | Inpatient (IN) | payer OTHER ==
--- OUTSIDE RECORDS SUMMARY | 2019-10-17 21:18 | XMS REPORT ---
:1940 [facility] Address [address] [place] [address] Dr. Dockery. [address] [place] [id number] Care Team Providers Name Role Phone Unavailable Unavailable Unavailable Problems This patient has no known problems. Allergies, Adverse Reactions, Alerts This patient has no known allergies or adverse reactions. Medications This patient has no known medications. Encounters Start End Encounter Admission Attending Care Care Encounter Date/Time Date/Time Type Type Clinicians Facility Department ID 2019-08-18 2019-08-18 Inpatient E [facility] MED [id number] 06:46:00 00:24:00 2019-08-18 2019-08-18 Outpatient [facility] JESS [id number] 00:24:00 00:24:00
[2019-10-17] MEDS ORDERED: Levofloxacin 750mg IV 750 MG/150 ML BAG IV ONE (21:33)
[2019-10-17] MEDS ORDERED: NA CHLORIDE 0.9% ONE (21:33)
[2019-10-17] MEDS ORDERED: METHYLPREDNISOLONE 125 MG INJ ONE (21:33)
[2019-10-17 22:05] LABS: Absolute Lymphocytes (CBC) 1.1 K/uL (0.7-4.9); Basophils % 0.4 % (0-1.3); Lymphocytes % 11.3 % (15.3-44.8); MPV 7.8 fL (7.6-11.3); RBC Red Blood Cell Count 5.77 M/uL (4.33-5.43)
[2019-10-17 22:19] LABS: Albumin 3.4 g/dL (3.4-5.0); Bilirubin Direct 0.3 mg/dL (0-0.2); Bilirubin Total 0.9 mg/dL (0.2-1.0); CKMB Creatine Kinase MB 3.9 ng/mL (0.3-3.6); Magnesium 2.3 mg/dL (1.8-2.4); Potassium 4.8 mmol/L (3.5-5.1); Protein, Total 6.5 g/dL (6.4-8.2); Troponin (Emerg Dept Use Only) 0.06 ng/mL (0.0-0.045)
[2019-10-17] MEDS ORDERED: LORazepam 2 MG/ML VIAL ONE (22:29)
[2019-10-17] MEDS ORDERED: LEVALBUTEROL 1.25 MG/3 ML NEB ONE (22:29)
[2019-10-17] MEDS ORDERED: IPRATROPIUM BROM 0.5MG/2.5ML ONE (22:32)
[2019-10-17] MEDS ORDERED: FUROSEMIDE 100 MG/10 ML VIAL IV ONE (22:36)
[2019-10-17 23:00] LABS: Blood Morphology Comment NOT SEEN (NOT SEEN); Platelet Estimate ADEQ
[2019-10-17 23:02] LABS: Urine Blood 2+ (NEG); Urine Glucose NEGATIVE (NEG); Urine Protein 1+ (NEG); Urine Specific Gravity 1.025 (1.005-1.030)
[2019-10-17] MEDS ORDERED: ALBUTEROL 2.5 MG/3 ML NEB SOL ONE (23:03)
[2019-10-17 23:13] LABS: Blood Gas Oxyhemoglobin 90.7 % (94-97); Blood O2 Saturation 92.1 % (92-98.5)
[2019-10-17 23:16] LABS: Protime INR 0.94
[2019-10-17 23:17] LABS: Arterial Blood Carboxyhemoglob 0.9 % (0-1.5); Blood Gas Oxyhemoglobin 91.2 % (94-97); Blood O2 Saturation 92.6 % (92-98.5)
[2019-10-17] MEDS ORDERED: Magnesium Sulfate 2gm IVPB 2 G/50 ML BAG IV ONE (23:26)
--- NOTE | 2019-10-17 23:31 | ER ---
Nurse's Notes [facility] Name: John Jr Age: 78 yrs Sex: Male : 1940 Arrival Date: 10/17/2019 Time: 21:17 Bed 4 Private MD: Diagnosis: Acute respiratory failure;Chronic obstructive pulmonary disease with (acute) exacerbation;Non-ST elevation (NSTEMI) myocardial infarction Presentation: 10/17 21:23 Presenting complaint: Patient states: PATIENT HAS HISTORY OF COPD. HE IS NORMALLY ON rv OXYGEN, HE WAS ALREADY AT 5 LPM WHEN WE ARRIVE. PUT HIM ON 6L PER NASAL CANNULA, GAVE HIM ALBUTEROL AND ATROVENT ON TRANSPORT. EMS states: PATIENT HAS HISTORY OF COPD. HE IS NORMALLY ON OXYGEN, HE WAS ALREADY AT 5 LPM WHEN WE ARRIVE. PUT HIM ON 6L PER NASAL CANNULA, GAVE HIM ALBUTEROL AND ATROVENT ON TRANSPORT. Transition of care: patient was not received from another setting of care. Onset of symptoms was October 17, 2019 at 21:00. Risk Assessment: Do you want to hurt yourself or someone else? Patient reports no desire to harm self or others. Care prior to arrival: None. 21:23 Method Of Arrival: EMS: [facility] rv 21:23 Acuity: YAZMIN 3 rv 21:33 Initial Sepsis Screen: Does the patient have a suspected source of infection?. rv 21:36 Initial Sepsis Screen:. rv 23:19 Initial Sepsis Screen: Does the patient meet any 2 criteria? No. Patient's initial rv sepsis screen is negative. Triage Assessment: 21:29 Respiratory: Reports shortness of breath at rest Onset: The symptoms/episode rv began/occurred gradually, the patient has moderate shortness of breath. Historical: - Allergies: 21:26 Iodine; rv - Home Meds: 21:26 Advair Diskus Inhl [Active]; aspirin 81 mg Oral TbEC 1 tab once daily [Active]; rv Famotidine Oral [Active]; ipratropium-albuterol inhalation Inhl [Active]; - PMHx: 21:26 COPD; Gastric Reflux; rv - PSHx: 21:26 None; rv - Immunization history:: Adult Immunizations up to date. - Social history:: Smoking status: Patient/guardian denies using tobacco, Patient/guardian denies using alcohol, street drugs, The patient lives with family. - Ebola Screening: : No symptoms or risks identified at this time. - Family history:: not pertinent. Screenin:28 Abuse screen: Denies threats or abuse. Denies injuries from another. Nutritional rv screening: No deficits noted. Tuberculosis screening: No symptoms or risk factors identified. Fall Risk None identified. Assessment: 21:27 General: Appears in no apparent distress. uncomfortable, Behavior is calm, cooperative. rv Pain: Denies pain. Neuro: Level of Consciousness is awake, alert, obeys commands, Oriented to person, place, time, situation. Cardiovascular: Patient's skin is warm and dry. Rhythm is sinus tachycardia. Respiratory: Airway is patent Respiratory effort is labored, Breath sounds are clear bilaterally. Derm: Skin is intact. 21:30 Reassessment: PATIENT HOOKED TO BIPAP MACHINE BY RT. Reassessment:. rv 22:48 Reassessment: Patient and/or family updated on plan of care and expected duration. Pain rv level reassessed. PATIENT IS RESTLESS. TRYING TO GET OUT OF THE BED AND TAKING THE MASK OFF. REFERRED TO DR TAMAYO. GIVEN BREATHING TREATMENT AND ATIVAN IV. PATIENT RESPONDING WELL WITH THE MACHINE AND MEDICINE. 23:47 Reassessment: Patient appears in no apparent distress at this time. Patient and/or rv family updated on plan of care and expected duration. Pain level reassessed. EXPRESSED "NO INTUBATION" WHEN DR TORRES ASKED REGARDING THE MATTER. 10/18 00:51 Reassessment: Patient and/or family updated on plan of care and expected duration. Pain ea level reassessed. Pt resting with eyes closed, Pt remains on the BiPap, admitted to ICU room 8, pt left ED via stretcher per nurse, emissions repair technician and RT. Accompanied by family. Pt tolerating well. Vital Signs: 10/17 21:21 BP 117 / 86; Pulse 110; Resp 16; Pulse Ox 86% on 6 lpm NC; Weight 83.91 kg; Height 6 rv ft. (182.88 cm); Pain 0/10; 21:21 Temp 97.6(TE); ea 22:00 BP 150 / 87; Pulse 104; Resp 21; Pulse Ox 96% on BiPAP; rv 22:30 BP 103 / 73; Pulse 115; Resp 19; Pulse Ox 99% on BiPAP; rv 23:00 BP 127 / 94; Pulse 125; Resp 24; Pulse Ox 97% on BiPAP; rv 23:30 BP 127 / 97; Pulse 128; Resp 24; Pulse Ox 94% on BiPAP; rv 10/18 00:03 Pulse 132; Resp 24; Pulse Ox 94% on 100% BiPAP; rv 00:35 BP 138 / 93; Pulse 132; Resp 24; Pulse Ox 98% on 100% BiPAP; rv 10/17 21:21 Body Mass Index 25.09 (83.91 kg, 182.88 cm) rv ED Course: 10/17 21:17 Patient arrived in ED. ds1 21:18 Ricci Tamayo MD is Attending Physician. ma2 21:20 Kehidne Blackwood RN is Primary Nurse. rv 21:25 Triage completed. rv 21:29 Arm band placed on right wrist. rv 21:29 Patient has correct armband on for positive identification. regional economist on. Pulse rv ox on. NIBP on. 21:33 Maintain EMS IV. Dressing intact. Good blood return noted. Site clean \\T\\ dry. Gauge \\T\\ rv site: G22 RIGHT AC. 21:48 XRAY CXR (1 view) In Process Unspecified. EDMS 21:50 First set of blood cultures drawn by me. rv 22:15 Second set of blood cultures drawn by ED staff. rv 22:51 Houser cath inserted, using sterile technique, 16 Fr., by me, balloon inflated, to rv gravity drainage, urine specimen collected. 23:00 Lab(s) recollected, by wa, sent to lab. rv 23:15 Inserted saline lock: 22 gauge in left antecubital area, using aseptic technique. rv 23:30 Ronaldo Torres is Hospitalizing Provider. ma2 10/18 00:36 No provider procedures requiring assistance completed. Patient admitted, IV remains in rv place. Administered Medications: 10/17 21:53 Drug: NS 0.9% 1000 ml Route: IV; Rate: 1 bolus; Site: right antecubital; rv 23:46 Follow up: IV Status: Order to discontinue infusion; IV Intake: 500ml rv 21:55 Drug: SOLU-Medrol 125 mg Route: IVP; Site: right antecubital; rv 22:15 Follow up: Response: No adverse reaction ea 22:15 Drug: levofloxacin 750 mg Volume: 150 ml; Route: IVPB; Infused Over: 90 mins; Site: rv right antecubital; 23:45 Follow up: IV Status: Completed infusion; IV Intake: 150ml rv 22:40 Drug: Xopenex 1.25 mg Route: Inhalation; rv 22:41 Drug: Ativan 1 mg Route: IVP; Site: right antecubital; ea 23:46 Follow up: Response: No adverse reaction rv 22:44 Drug: AtroVENT Aerosol 0.5 mg Route: Inhalation; ea 23:45 Follow up: Response: No adverse reaction rv 22:45 Drug: Lasix 100 mg Route: IVP; Site: right antecubital; rv 23:45 Follow up: Response: No adverse reaction rv 22:47 CANCELLED (Duplicate Order): Xopenex (3) 1.25 mg Inhalation once rv 23:27 Drug: Magnesium Sulfate 2 grams Route: IVPB; Infused Over: 2 hrs; Site: left rv antecubital; 10/18 00:28 Follow up: IV Status: Completed infusion rv 10/17 23:45 Drug: Lovenox 80 mg Route: Sub-Q; Site: right lower abdomen; rv 10/18 00:28 Follow up: Response: No adverse reaction rv 00:51 Not Given (pt unable to tolerate PO meds at this time): Aspirin Chewable Tablet 324 mg ea PO once; 81 mg tablets x 4 Intake: 10/17 23:45 IV: 150ml; Total: 150ml. rv 23:46 IV: 500ml; Total: 650ml. rv Outcome: 23:30 Decision to Hospitalize by Provider. de2 10/18 00:36 Admitted to ICU accompanied by nurse, accompanied by tech, via stretcher, room 5, with rv oxygen, on monitor, with chart, Report called to NIRAJ GIFFORD Condition: stable Instructed on the need for admit. 00:54 Patient left the ED. ea Signatures: Dispatcher [employer] Tamika Stephens Elena, RN RN Ricci Skinner MD MD ma2 Kehinde Blackwood RN RN rv
--- NOTE | 2019-10-17 23:32 | EDPHYS ---
Physician Documentation [facility] Name: John Jr Age: 78 yrs Sex: Male : 1940 Arrival Date: 10/17/2019 Time: 21:17 Bed 4 Private MD: ED Physician Ricci Salazar HPI: 10/17 23:24 This 78 yrs old Male presents to ER via EMS with complaints of Breathing ma2 Difficulty. 23:24 The patient has shortness of breath at rest. Onset: The symptoms/episode began/occurred ma2 gradually, 1 week(s) ago. Associated signs and symptoms: Pertinent positives: productive cough, Pertinent negatives: chest pain, diaphoresis, fever, hemoptysis, loss of consciousness, visual changes. Severity of symptoms: At their worst the symptoms were severe in the emergency department the symptoms are unchanged. The patient has experienced similar episodes in the past. Historical: - Allergies: 21:26 Iodine; rv - Home Meds: 21:26 Advair Diskus Inhl [Active]; aspirin 81 mg Oral TbEC 1 tab once daily [Active]; rv Famotidine Oral [Active]; ipratropium-albuterol inhalation Inhl [Active]; - PMHx: 21:26 COPD; Gastric Reflux; rv - PSHx: 21:26 None; rv - Immunization history:: Adult Immunizations up to date. - Social history:: Smoking status: Patient/guardian denies using tobacco, Patient/guardian denies using alcohol, street drugs, The patient lives with family. - Ebola Screening: : No symptoms or risks identified at this time. - Family history:: not pertinent. ROS: 23:24 Constitutional: Negative for fever, chills, and weight loss. ma2 23:24 All other systems are negative. Exam: 23:24 ENT: Nares patent. No nasal discharge, no septal abnormalities noted. Tympanic ma2 membranes are normal and external auditory canals are clear. Oropharynx with no redness, swelling, or masses, exudates, or evidence of obstruction, uvula midline. Mucous membranes moist. Neck: Trachea midline, no thyromegaly or masses palpated, and no cervical lymphadenopathy. Supple, full range of motion without nuchal rigidity, or vertebral point tenderness. No Meningismus. 23:24 Chest/axilla: Normal chest wall appearance and motion. Nontender with no deformity. No lesions are appreciated. Cardiovascular: Regular rate and rhythm with a normal S1 and S2. No gallops, murmurs, or rubs. Normal PMI, no JVD. No pulse deficits. Abdomen/GI: Soft, non-tender, with normal bowel sounds. No distension or tympany. No guarding or rebound. No evidence of tenderness throughout. Back: No spinal tenderness. No costovertebral tenderness. Full range of motion. MS/ Extremity: Pulses equal, no cyanosis. Neurovascular intact. Full, normal range of motion. Neuro: Awake and alert, GCS 15, oriented to person, place, time, and situation. Cranial nerves II-XII grossly intact. Motor strength 5/5 in all extremities. Sensory grossly intact. Cerebellar exam normal. Normal gait. 23:24 Constitutional: The patient appears alert, awake, in obvious distress, moderately distressed. 23:24 Respiratory: moderate respiratory distress is noted, Respirations: labored breathing, accessory muscle usage, Breath sounds: rales, that are moderate, are heard in the right middle lobe, rhonchi, wheezing: Vital Signs: 21:21 BP 117 / 86; Pulse 110; Resp 16; Pulse Ox 86% on 6 lpm NC; Weight 83.91 kg; Height 6 rv ft. (182.88 cm); Pain 0/10; 21:21 Temp 97.6(TE); ea 22:00 BP 150 / 87; Pulse 104; Resp 21; Pulse Ox 96% on BiPAP; rv 22:30 BP 103 / 73; Pulse 115; Resp 19; Pulse Ox 99% on BiPAP; rv 23:00 BP 127 / 94; Pulse 125; Resp 24; Pulse Ox 97% on BiPAP; rv 23:30 BP 127 / 97; Pulse 128; Resp 24; Pulse Ox 94% on BiPAP; rv 10/18 00:03 Pulse 132; Resp 24; Pulse Ox 94% on 100% BiPAP; rv 00:35 BP 138 / 93; Pulse 132; Resp 24; Pulse Ox 98% on 100% BiPAP; rv 10/17 21:21 Body Mass Index 25.09 (83.91 kg, 182.88 cm) rv MDM: 10/17 21:18 Patient medically screened. ma2 23:24 Differential diagnosis: Anemia Bronchitis Chronic Obstructive Pulmonary Disease ma2 Myocardial Infarction pneumonia, reactive airway disease, Unstable Angina. Antibiotic administration: Data reviewed: vital signs, nurses notes, lab test result(s). Counseling: I had a detailed discussion with the patient and/or guardian regarding: the historical points, exam findings, and any diagnostic results supporting the discharge/admit diagnosis, the presence of at least one elevated blood pressure reading (>120/80) during this emergency department visit, the need for further work-up and treatment in the hospital, he has elevated d dimer, however given presence of expiratory wheeze and improvement of symptoms with albuterol, risk of contrast load with ct pe rule out is higher at this time, given his troponin elevation will anticoagulate him at this time, no dvt on exam . 10/17 21:28 Order name: Blood Culture Adult (2) [facility] 10/17 21:28 Order name: BMP [facility] 10/17 21:28 Order name: CBC with Diff [facility] 10/17 21:28 Order name: Ckmb [facility] 10/17 21:28 Order name: CPK; Complete Time: 22:30 [facility] 10/17 21:28 Order name: D-Dimer; Complete Time: 23:28 [facility] 10/17 21:28 Order name: Hepatic Function; Complete Time: 22:30 [facility] 10/17 21:28 Order name: Lipase; Complete Time: 22:30 [facility] 10/17 21:28 Order name: Magnesium; Complete Time: 22:30 [facility] 10/17 21:28 Order name: NT PRO-BNP; Complete Time: 22:30 [facility] 10/17 21:28 Order name: PT-INR; Complete Time: 23:28 [facility] 10/17 21:28 Order name: Ptt, Activated; Complete Time: 23:28 [facility] 10/17 21:28 Order name: Troponin (emerg Dept Use Only); Complete Time: 22:30 [facility] 10/17 21:28 Order name: Flu; Complete Time: 22:30 [facility] 10/17 21:28 Order name: XRAY CXR (1 view) [facility] 10/17 21:28 Order name: Blood Culture [facility] 10/17 21:28 Order name: Basic Metabolic Panel; Complete Time: 22:30 [facility] 10/17 21:28 Order name: CBC with Automated Diff; Complete Time: 23: [facility] 10/17 21:28 Order name: CKMB Creatine Kinase MB; Complete Time: 22:30 EDMS 10/17 22:08 Order name: Manual Differential; Complete Time: 23:12 EDMS 10/17 22:47 Order name: Urine Dipstick--Ancillary (enter results); Complete Time: 23:12 mt 10/17 23:12 Order name: ABG Arterial Blood Gas EDMS 10/17 23:17 Order name: ABG Arterial Blood Gas; Complete Time: 23:28 EDMS 10/17 21:28 Order name: EKG; Complete Time: 21:29 ma2 10/17 21:28 Order name: Cardiac monitoring; Complete Time: 21:32 ma2 10/17 21:28 Order name: EKG - Nurse/Tech; Complete Time: 21:32 ma2 10/17 21:28 Order name: IV Saline Lock; Complete Time: 21:32 ma2 10/17 21:28 Order name: Labs collected and sent; Complete Time: 21:32 ma2 10/17 21:28 Order name: O2 Per Protocol; Complete Time: :32 ma2 10/17 21:28 Order name: O2 Sat Monitoring; Complete Time: 21:32 ma2 Administered Medications: 21:53 Drug: NS 0.9% 1000 ml Route: IV; Rate: 1 bolus; Site: right antecubital; rv 23:46 Follow up: IV Status: Order to discontinue infusion; IV Intake: 500ml rv 21:55 Drug: SOLU-Medrol 125 mg Route: IVP; Site: right antecubital; rv 22:15 Follow up: Response: No adverse reaction ea 22:15 Drug: levofloxacin 750 mg Volume: 150 ml; Route: IVPB; Infused Over: 90 mins; Site: rv right antecubital; 23:45 Follow up: IV Status: Completed infusion; IV Intake: 150ml rv 22:40 Drug: Xopenex 1.25 mg Route: Inhalation; rv 22:41 Drug: Ativan 1 mg Route: IVP; Site: right antecubital; ea 23:46 Follow up: Response: No adverse reaction rv 22:44 Drug: AtroVENT Aerosol 0.5 mg Route: Inhalation; ea 23:45 Follow up: Response: No adverse reaction rv 22:45 Drug: Lasix 100 mg Route: IVP; Site: right antecubital; rv 23:45 Follow up: Response: No adverse reaction rv 22:47 CANCELLED (Duplicate Order): Xopenex (3) 1.25 mg Inhalation once rv 23:27 Drug: Magnesium Sulfate 2 grams Route: IVPB; Infused Over: 2 hrs; Site: left rv antecubital; 10/18 00:28 Follow up: IV Status: Completed infusion rv 10/17 23:45 Drug: Lovenox 80 mg Route: Sub-Q; Site: right lower abdomen; rv 10/18 00:28 Follow up: Response: No adverse reaction rv 00:51 Not Given (pt unable to tolerate PO meds at this time): Aspirin Chewable Tablet 324 mg ea PO once; 81 mg tablets x 4 Disposition: 10/17 23:24 Critical Care:. ma2 Disposition: 10/17/19 23:30 Hospitalization ordered by Ronaldo Castillo for Inpatient Admission. Preliminary diagnosis are Acute respiratory failure, Chronic obstructive pulmonary disease with (acute) exacerbation, Non-ST elevation (NSTEMI) myocardial infarction. - Bed requested for Intensive Care Unit. - Status is Inpatient Admission. ea - Condition is Critical. - Problem is new. - Symptoms are unchanged. UTI on Admission? No Critical care time excluding procedures: 23:24 Critical care time: Bedside Care: 30 minutes, Consultation: 10 minutes, Family ma2 Intervention: 5 minutes. Total time: 45 minutes Signatures: Dispatcher [employer] Mitra Galicia RN RN cg Antunez, Elena, RN RN ea Alzahri, Mohammad, MD MD ma2 Vicente, Ronaldo, RN RN rv Corrections: (The following items were deleted from the chart) 22:47 22:31 Xopenex (3) 1.25 mg Inhalation once ordered. rv rv 10/18 00:21 10/17 23:30 Hospitalization Ordered by Ronaldo Castillo for Inpatient Admission. cg Preliminary diagnosis is Acute respiratory failure; Chronic obstructive pulmonary disease with (acute) exacerbation; Non-ST elevation (NSTEMI) myocardial infarction. Bed requested for Intensive Care Unit. Status is Inpatient Admission. Condition is Critical. Problem is new. Symptoms are unchanged. UTI on Admission? No. ma2 10/18 00:54 00:21 10/17/2019 23:30 Hospitalization Ordered by Ronaldo Castillo for Inpatient ea Admission. Preliminary diagnosis is Acute respiratory failure; Chronic obstructive pulmonary disease with (acute) exacerbation; Non-ST elevation (NSTEMI) myocardial infarction. Bed requested for Intensive Care Unit. Status is Inpatient Admission. Condition is Critical. Problem is new. Symptoms are unchanged. UTI on Admission? No. cg
[2019-10-17] MEDS ORDERED: ENOXAPARIN 80 MG/0.8 ML SQ ONE (23:40)
--- NOTE | 2019-10-17 23:57 | P.HP ---
Certification for Inpatient Patient admitted to: Inpatient With expected LOS: >2 Midnights Practitioner: I am a practitioner with admitting privileges, knowledge of patient current condition, hospital course, and medical plan of care. Services: Services provided to patient in accordance with Admission requirements found in Title 42 Section 412.3 of the Code of Federal Regulations Patient History Date of Service: 10/17/19 Reason for admission: Shortness of breath History of Present Illness: 78-year-old gentleman with a history of COPD, chronic respiratory failure on home oxygen coronary artery disease status post cardiac stent was brought to the emergency department due to progressive shortness of breath over a period of 2 weeks. Patient was obtunded and restless and could not provide any history when seen in the ED. Family reports the patient developed respiratory distress today. According to the family his symptoms were preceded by a bout of upper respiratory symptoms including runny nose, and nasal congestion. He was treated for sinusitis with antibiotics prescribed by an ENT specialist according to the . The patient was noted to be in acute respiratory distress. His chest x-ray demonstrated possible infiltrate in the left lower lobe and increased interstitial markings, worse in the lower lobes. BNP is elevated. Troponin is mildly elevated. The patient was given a breathing treatment-Xopenex and Atrovent, IV Solu-Medrol, IV Lasix and IV Levaquin. He was also given IV Ativan for agitation. Patient was obtunded during my examination and in moderate respiratory distress. Arterial blood gas on 100% FiO2 demonstrated borderline PO2. Patient is admitted for further management. Allergies iodine Allergy (Severe, Verified 09/07/15 11:56) Anaphylaxis Home Medications: Famotidine 1 tab PO DAILY 10/01/16 Ipratropium/Albuterol Sulfate [Combivent Respimat Inhal [place]] 1 puff IH PRN PRN 10/18/19 Umeclidinium [place] [Incruse Ellipta] 1 inh IH DAILY 10/18/19 predniSONE [Deltasone*] 10 mg PO TID 10/18/19 - Past Medical/Surgical History Diabetic: No -: COPD -: reflux -: stroke -: cardiac stents -: hernia repair -: dental implant -: skin cancer removed from back - Family History Sister -: Hypertension Mother -: Lung disease Notes: copd - Social History Alcohol use: Yes CD- Drugs: No Caffeine use: Yes Review of Systems is unable to be obtained (Due to altered mental status) Physical Examination - Physical Exam General: Moderate distress, Delirious HEENT: Atraumatic, PERRLA, Mucous membr. moist/pink, Sclerae nonicteric Neck: Supple, JVD not distended Respiratory: Diminished (Diffuse diminished breath sounds, prolonged expiratory phase), Expiratory wheezes, Other (Labored breathing, Upper airway transmitted sounds) Cardiovascular: No edema, Normal S1 S2, Other (Tachycardia) Capillary refill: <2 Seconds Gastrointestinal: Normal bowel sounds, Soft and benign, No tenderness Musculoskeletal: No swelling, Erythema (Bilateral legs) Integumentary: Erythema (Bilateral lower extremity venostasis dermatitis) Neurological: Other (Confused and restless, he moves all extremities spontaneously.) - Studies Laboratory Data (last 24 hrs) 10/17/19 22:55: PT 11.1, INR 0.94, APTT 21.2 L 10/17/19 21:50: WBC 9.5, Hgb 16.9, Hct 51.0 H, Plt Count 140 L 10/17/19 21:50: Sodium 140, Potassium 4.8, BUN 44 H, Creatinine 1.24, Glucose 179 H, Magnesium 2.3 D, Total Bilirubin 0.9, AST 21, ALT 42, Alkaline Phosphatase 56, Lipase 222 Microbiology Data (last 24 hrs): 10/17/19 21:40 Nasopharnyx Influenza Type A Antigen Screen - Final 10/17/19 21:40 Nasopharnyx Influenza Type B Antigen Screen - Final Assessment and Plan - Problems (Diagnosis) (1) COPD with acute exacerbation Onset Date: 07/06/18 Current Visit: No Status: Acute (2) Acute on chronic respiratory failure with hypoxemia Current Visit: Yes Status: Acute (3) Elevated d-dimer Current Visit: Yes Status: Acute (4) Elevated troponin Current Visit: Yes Status: Acute (5) Metabolic encephalopathy Current Visit: Yes Status: Acute (6) Pneumonia Onset Date: 10/02/16 Current Visit: No Status: Acute - Plan Admit to ICU BiPAP therapy. has declined intubation. Patient is full code Keep NPO Schedule Duoneb, IV Solu-Medrol, IV Levaquin Follow blood cultures Empirically treat for thromboembolism with full-dose Lovenox given elevated D- dimer and obtain CTA PE to rule out PE when clinically stable. Lovenox and also treat troponin elevation. Trend troponin. Obtain echocardiogram Consult to pulmonology Kody LIZAMA p.r.n. for agitation. - Advance Directives Does patient have a Living Will: No Does patient have a Durable POA for Healthcare: No
[2019-10-18] MEDS ORDERED: ALBUTEROL 2.5 MG/3 ML NEB SOL ONE (00:22)
[2019-10-18 01:31] VITALS: BMI 22.5
[2019-10-18] MEDS ORDERED: ONDANSETRON 4 MG/2 ML VIAL IV PRN (01:50)
[2019-10-18] MEDS ORDERED: ACETAMINOPHEN 650MG/RECT SUPP RECT PRN (01:50)
[2019-10-18] MEDS: ALBUTEROL 2.5 MG/3 ML NEB SOL NEB SCH ×2 (02:15→08:15)
[2019-10-18] MEDS ORDERED: HALOPERIDOL LACT 5 MG/ML INJ IV ONE (03:37)
[2019-10-18] MEDS: NA CHLORIDE 0.9% 1,000 ML IV SCH ×2 (03:39→23:26)
[2019-10-18] MEDS: IPRATROPIUM BROM 0.5MG/2.5ML NEB SCH ×2 (04:20→08:15)
[2019-10-18 05:12] LABS: Absolute Lymphocytes (CBC) 0.4 K/uL (0.7-4.9); Basophils % 0.2 % (0-1.3); Hematocrit 46.4 % (39.6-49.0); Lymphocytes % 3.5 % (15.3-44.8); MPV 8.2 fL (7.6-11.3); RBC Red Blood Cell Count 5.23 M/uL (4.33-5.43)
[2019-10-18 05:28] LABS: Phosphorus 5.3 mg/dL (2.5-4.9); Potassium 4.9 mmol/L (3.5-5.1)
[2019-10-18] MEDS: METHYLPREDNISOLONE 125 MG INJ IV SCH ×2 (06:13→11:15)
--- NOTE | 2019-10-18 08:00 | RAD REPORT ---
EXAM DESCRIPTION: Kristine Single View10/17/2019 9:48 pm CLINICAL HISTORY: Congestion COMPARISON: 2018 FINDINGS: Lungs are hyperaerated. Chronic interstitial lung opacities within the lung bases. The lungs appear clear of acute infiltrate. The heart is normal size IMPRESSION: COPD without visualization of an acute abnormality
[2019-10-18 08:48] LABS: Blood Gas Oxyhemoglobin 90.8 % (94-97); Blood O2 Saturation 92.2 % (92-98.5)
[2019-10-18] MEDS ORDERED: ENOXAPARIN 80 MG/0.8 ML SQ SCH ×2 (09:00→21:00)
--- NOTE | 2019-10-18 10:24 | EKG ---
Test Date: 2019-10-17 Test Time: 21:24:52 Wool Classer: LOUANN MEASUREMENT RESULTS: Intervals: Rate: 108 MD: 142 QRSD: 92 QT: 334 QTc: 447 [place]: P: 86 MD: 142 QRS: 124 T: -16 INTERPRETIVE STATEMENTS: Sinus tachycardia with premature atrial complexes Right axis deviation Incomplete right bundle branch block Right ventricular hypertrophy Cannot rule out Anteroseptal infarct, age undetermined ST & T wave abnormality, consider inferior ischemia Abnormal ECG Compared to ECG 07/04/2018 23:17:22 Atrial premature complex(es) now present Ventricular premature complex(es) no longer present Myocardial infarct finding still present ST (T wave) deviation still present Electronically Signed On 10-18-19 10:23:54 WAITER/WAITRESS TAKE OUT by Ankit Sommer
--- NOTE | 2019-10-18 11:16 | ECHO ---
HEIGHT: 6 ft 0 in WEIGHT: 166 lb 0 oz DATE OF STUDY: 10/18/[address]: gus marquez 2-DIMENSIONAL: YES M.MODE: YES DOPPLER: YES COLOR FLOW: YES TDS: YES PORTABLE: YES DEFINITY: NO BUBBLE STUDY: NO DIAGNOSIS: ELEVATED TROPONIN CARDIAC HISTORY: CATHERIZATION: NO SURGERY: NO PROSTHETIC VALVE: NO PACEMAKER: NO MEASUREMENTS (cm) DIASTOLIC (NORMALS) SYSTOLIC (NORMALS) IVSd 1.3 (0.6-1.2) LA Diam (1.9-4.0) LVEF 77% LVIDd 2.6 (3.5-5.7) LVIDs 1.5 (2.0-3.5) %FS 44% LVPWd 1.0 (0.6-1.2) Ao Diam 3.3 (2.0-3.7) 2 DIMENSIONAL ASSESSMENT: RIGHT ATRIUM: DILATED LEFT ATRIUM: NORMAL RIGHT VENTRICLE: DILATED LEFT VENTRICLE: NORMAL TRICUSPID VALVE: NORMAL MITRAL VALVE: NORMAL PULMONIC VALVE: NORMAL AORTIC VALVE: NORMAL PERICARDIAL EFFUSION: NONE AORTIC ROOT: NORMAL LEFT VENTRICULAR WALL MOTION: PARADOXICAL SEPTAL MOTION. DOPPLER/COLOR FLOW: MODERATE TRICUSPID REGURGITATION. SEVERE PULMONARY HYPERTENSION. ESTIMATED RIGHT VENTRICULAR SYSTOLIC PRESSURE 90 mmHg. COMMENTS: NORMAL LEFT VENTRICULAR EJECTION FRACTION. DILATED RIGHT ATRIUM AND RIGHT VENTRICLE. PARADOXICAL SEPTAL MOTION. MODERATE TRICUSPID REGURGITATION. SEVERE PULMONARY HYPERTENSION. TECHNOLOGIST: Dea GARLAND
[2019-10-18] MEDS ORDERED: propofoL 1,000 MG/100 ML VIAL IV ONE (12:18)
[2019-10-18] MEDS ORDERED: RSI MEDICATION KIT IV ONE (12:19)
--- NOTE | 2019-10-18 12:20 | P.CNS ---
Date of Consult: 10/18/19 Reason for Consult: Possible pulmonary embolism Chief Complaint: Shortness of breath History of Present Illness: Patient is 78 years of age well known to me is debilitated according to his developed worsening shortness of breath in the past week or so patient was recently discharged from [facility] with sepsis exacerbation of COPD/ pulmonary fibrosis was doing well during Fatou time at worse is : Last night advise him to bring in to the emergency room he is currently tachypneic and 100% BiPAP severe pulmonary hypertension possible underlying pulmonary embolism he is usually debilitated baseline Allergies iodine Allergy (Severe, Verified 09/07/15 11:56) Anaphylaxis Home Medications: Famotidine 1 tab PO DAILY 10/01/16 Ipratropium/Albuterol Sulfate [Combivent Respimat Inhal [place]] 1 puff IH PRN PRN 10/18/19 Umeclidinium [place] [Incruse Ellipta] 1 inh IH DAILY 10/18/19 predniSONE [Deltasone*] 10 mg PO TID 10/18/19 - Past Medical/Surgical History Diabetic: No -: COPD -: reflux -: stroke -: cardiac stents -: hernia repair -: dental implant -: skin cancer removed from back - Family History Sister Medical History: Hypertension Mother Medical History: Lung disease Notes: copd - Social History Alcohol use: Yes CD- Drugs: No Caffeine use: Yes Place of Residence: Home Review of Systems is unable to be obtained Physical Examination Temp Pulse Resp BP Pulse Ox 97.2 F 115 H 25 H 142/93 H 94 10/18/19 04:00 10/18/19 12:00 10/18/19 12:00 10/18/19 12:00 10/18/19 12:00 General: Severe distress HEENT: Atraumatic Neck: Supple Respiratory: Clear to auscultation bilaterally, Diminished Cardiovascular: No edema, Regular rate/rhythm, Normal S1 S2 Gastrointestinal: Normal bowel sounds, Soft and benign Musculoskeletal: No clubbing, No swelling Integumentary: No rashes, No breakdown Laboratory Data (last 24 hrs) 10/17/19 22:55: PT 11.1, INR 0.94, APTT 21.2 L 10/17/19 21:50: WBC 9.5, Hgb 16.9, Hct 51.0 H, Plt Count 140 L 10/17/19 21:50: Sodium 140, Potassium 4.8, BUN 44 H, Creatinine 1.24, Glucose 179 H, Magnesium 2.3 D, Total Bilirubin 0.9, AST 21, ALT 42, Alkaline Phosphatase 56, Lipase 222 - Problems (1) Respiratory failure Current Visit: Yes Status: Acute Plan: Patient is 78 years of age debilitated from his underlying COPD pulmonary fibrosis was recently discharged from [facility] became worse in the past week or so very short of breath brought here to the emergency room years severe pulmonary hypertension elevated D-dimer chest x-ray shows COPD changes no evidence of sepsis he has a metabolic acidosis discussed with family members and his gave plan to proceed to intubation CT pulmonary angiogram possible thrombolytics therapy if indicated also advised them about DNR also about the risk of bleeding if t-PA niece to be used in the understand Qualifiers: Chronicity: acute on chronic Critical Care: Yes Time Spent Managing Pts care (In Minutes): 60
[2019-10-18] MEDS ORDERED: propofoL 1,000 MG/100 ML VIAL IV PRN (12:27)
[2019-10-18] MEDS ORDERED: NA CHLORIDE 0.9% 250 ML IV PRN (12:27)
[2019-10-18] MEDS ORDERED: MIDAZOLAM HCL 2 MG/2 ML INJ IV PRN (12:27)
--- NOTE | 2019-10-18 12:32 | P.OP ---
Date of Service: 10/18/19 (Endotracheal intubation) Findings and Operative Technique Patient is 78 years of age admitted with acute respiratory distress failed BiPAP on 100% patient was electively intubated for the possibility of pulmonary embolism intubation was done without any difficulty woke [place] was visualized he was intubated with a size 7-1/2 tube using 60 mg of IV propofol patient tolerated the procedure very well did not experience any hypoxemia or significant hypertension chest x-ray will be performed
--- NOTE | 2019-10-18 13:04 | RAD REPORT ---
EXAM DESCRIPTION: Kristine Single View10/18/2019 12:55 pm CLINICAL HISTORY: Device placement endotracheal tube placement IMPRESSION: An endotracheal tube has been inserted with its tip 6.5 centimeters above the brittany. The tip of a nasogastric tube is not well visualized secondary to technical factors. It may lie withi n the esophagus. It is recommended that the patient have a film of the upper abdomen for further eval uation The exam was discussed with Janay in the Emergency Room
[2019-10-18] MEDS: LORazepam 2 MG/ML VIAL IV PRN (13:14)
[2019-10-18] MEDS: FENTANYL CITR 100 MCG/2 ML IV PRN (13:37)
--- NOTE | 2019-10-18 13:53 | RAD REPORT ---
EXAM DESCRIPTION: USExtrem Venous W Compress Bil10/18/2019 1:35 pm CLINICAL HISTORY: Bilateral leg swelling COMPARISON: 2017 FINDINGS: The common femoral, superficial femoral, popliteal and posterior tibial veins bilaterally are compressible and demonstrate augmentation. Doppler demonstrates good flow. IMPRESSION: No evidence of deep venous thrombosis involving either lower extremity.
--- NOTE | 2019-10-18 13:55 | RAD REPORT ---
EXAM DESCRIPTION: Kristine Single View10/18/2019 1:39 pm CLINICAL HISTORY: Device placement nasogastric tube placement IMPRESSION: A nasogastric tube is not included in the field of view which is the lower chest and abd omen. This indicates that the nasogastric tube lies within the mid esophagus
[2019-10-18] MEDS: LEVALBUTEROL 1.25 MG/3 ML NEB NEB SCH ×2 (14:02→20:10)
[2019-10-18 14:09] LABS: Blood Gas Oxyhemoglobin 72.2 % (94-97); Blood O2 Saturation 73.4 % (92-98.5)
--- NOTE | 2019-10-18 15:43 | CON ---
History Of Present Illness: Mr. Aldrich is 78. I am asked to see him because he is having runs of v entricular tachycardia, he has elevated troponins, came to the hospital with respiratory failure, nor keara intubation would have been done with his respiratory distress at the level that was last night and still is. However, his stated his wishes were not to be intubated ever and used to be DNR. There are no official DNR orders on the chart, however. The patient has long-standing very severe C OPD with BiPAP mask, breathing about 35 to 40 times a minute. He is alert but a little bit confused, very much struggling to breathe. His most recent arterial blood gas showed a pO2 of 68 with a pCO2 of 33, pH of 7.29. He has an elevated lactic acid level, elevated troponin levels also. Impression: His resuscitation status should be clear if were to resuscitating needs to be intubated in which case his ventricular tachycardia will probably go away. We could start amiodarone if it noe s not, but if he do not resuscitate, we need to make that clear in which case we would not be ocampo to try and treat the ventricular tachycardia. ALLI/ANNA Voice ID: [id number] Report ID: [id number]
--- NOTE | 2019-10-18 16:54 | RAD REPORT ---
EXAM DESCRIPTION: CT - Chest For Pe Angio - 10/18/2019 4:39 pm CLINICAL HISTORY: R/O PE, shortness of breath, intubation COMPARISON: Thorax Wo Con dated 05/07/2017; Chest Single View dated 10/18/2019 TECHNIQUE: Dynamically enhanced 3 mm thick images of the chest were obtained during administration o f approximately 150mL Isovue 370 IV contrast. Coronal and oblique MIP reconstruction images were gene rated and reviewed. Exam utilizes a protocol to evaluate the pulmonary arterial tree. All CT scans are performed using dose optimization technique as appropriate and may include automated exposure control or mA/KV adjustment according to patient size. FINDINGS: No pulmonary emboli are identified. Exam does have significant motion degradation of FX in the mid and lower lung love. Likelihood of an obscured pulmonary embolism is felt to be very low. The aorta as imaged shows no acute or suspicious finding. No pericardial thickening or effusion. Jammie ent has questionable left ventricular myocardial hypertrophy. CT sensitivity is limited in this diagn osis. Bulla and bleb formation is present. Patient has subpleural fibrotic scarring changes. This is most n otable in the lateral aspect of the lingula. Mainstem bronchi appear narrowed however assessment is l imited due to the substantial motion. No pleural effusion or pleural thickening. No mediastinal or hilar suspicious masses. No chest wall masses or abnormal axillary lymphadenopathy. Endotracheal tube is in place. Tip is just above the aortic arch level. IMPRESSION: No pulmonary emboli identified. Chronic lung parenchymal disease is present without acute component identified. Questionable left ventricular myocardial hypertrophy. CT sensitivity is limited.
[2019-10-18] MEDS: METHYLPREDNISOLONE 40 MG INJ IV SCH (18:21)
[2019-10-18] MEDS ORDERED: Levofloxacin 750mg IV 750 MG/150 ML BAG IV SCH (20:00)
[2019-10-18] MEDS: FAMOTIDINE 20 MG/2 ML VIAL IV SCH (21:00)
--- NOTE | 2019-10-18 23:19 | PN ---
Subjective: This patient appeared to be very stressful regarding to his breathing. He was put on the BiPAP, but he continued to experience labored breathing. Solar Sales Consultant discussed with his family and the patient was intubated. Review of Systems: Unavailable due to sedation. Physical Examination: General: Patient is intubated. Vital Signs: Temperature normal, heart rate 101, respiratory rate 14, blood pressure 126/65, oxygen saturation 97% with intubation. HEENT: Normocephalic, atraumatic. Intubated. Chest: Bilateral diffused wheezing and rhonchi. Heart: Normal S1, S2. Tachycardia. No murmur. Abdomen: Soft, nontender. Bowel sounds present. Extremities: No edema, no cyanosis. Neuro: Unavailable due to station. Skin: No rashes or lesion. Laboratory Data: WBC 12.1, hemoglobin 15.4, platelets 148. D-dimer 986. ABG 7.29, pCO2 of 33, pO2 of 68 with FiO2 of 100. Sodium 141, potassium 4.9, creatinine 1.3, glucose 234, magnesium of 3, phosphorous of 5.3. Troponin 0.08. Lactic acid 5.6. Imaging Study: Chest CTA: No pulmonary emboli identified. Chronic lung parenchymal disease without acute components identified. Questionable left ventricular hypertrophy. Assessment/plan: 1. Acute respiratory failure with hypoxia. This is likely due to chronic obstructive pulmonary disease exacerbation. D-dimer was elevated, however, chest CTA negative for pulmonary embolism. Patient was intubated and put on ventilator. Solar Sales Consultant was consulted. Continue Xopenex nebulization. Continue Levaquin. 2. Chronic obstructive pulmonary disease exacerbation, treated with nebulization. Continue IV Solu-Medrol. Pulmonology has been following this patient. 3. Elevated troponin, likely secondary to acute respiratory failure. I put a consult for musculoskeletal physiotherapist. 4. Metabolic encephalopathy. This is likely secondary to respiratory failure. Currently, the patient intubated and sedated. Initially, the declined intubation . Family decided intubation and ventilator after mapping technician discussed with the family. His prognosis is guarded at this point. QT/MODL Voice ID: [id number] Report ID: [id number] MTDD
[2019-10-19] MEDS: METHYLPREDNISOLONE 40 MG INJ IV SCH ×3 (01:53→16:27)
[2019-10-19] MEDS: LEVALBUTEROL 1.25 MG/3 ML NEB NEB SCH ×4 (02:05→19:58)
[2019-10-19 05:26] LABS: Absolute Lymphocytes (CBC) 0.5 K/uL (0.7-4.9); Basophils % 0.2 % (0-1.3); Hematocrit 37.8 % (39.6-49.0); MPV 8.3 fL (7.6-11.3); RBC Red Blood Cell Count 4.34 M/uL (4.33-5.43)
[2019-10-19 05:37] LABS: Magnesium 2.9 mg/dL (1.8-2.4); Phosphorus 2.9 mg/dL (2.5-4.9); Potassium 4.2 mmol/L (3.5-5.1)
[2019-10-19] MEDS: LORazepam 2 MG/ML VIAL IV PRN ×5 (06:00→22:36)
[2019-10-19] MEDS: FENTANYL CITR 100 MCG/2 ML IV PRN ×4 (06:01→20:30)
[2019-10-19 06:17] LABS: Arterial Blood Carboxyhemoglob 1.5 % (0-1.5); Blood Gas Oxyhemoglobin 86.7 % (94-97); Blood O2 Saturation 88.6 % (92-98.5)
--- NOTE | 2019-10-19 08:17 | P.PN ---
Subjective Date of Service: 10/19/19 Chief Complaint: Respiratory failure Patient's condition is stable he still very hypoxic there is no evidence of thromboembolism the TS go severe terminal COPD Review of Systems is unable to be obtained Physical Examination - Vital Signs Temperature: 98.1 F Blood Pressure: 111/59 Pulse: 97 Respirations: 14 Pulse Ox (%): 94 - Physical Exam General: Unresponsive Respiratory: Clear to auscultation bilaterally, Diminished Cardiovascular: No edema, Regular rate/rhythm - Studies Microbiology Data (last 24 hrs): 10/17/19 22:15 Blood - Blood Anaerobic Blood Culture - Final 10/17/19 21:50 Blood - Blood Anaerobic Blood Culture - Final Assessment & Plan - Problems (Diagnosis) (1) Respiratory failure Current Visit: Yes Status: Acute Plan: Patient admitted with respiratory failure no evidence of sepsis or DVT or PE continues to remain hypoxic echocardiogram did show severe pulmonary hypertension CT pulmonary angiogram shows extensive COPD with some pulmonary fibrosis continues to remain hypoxic his prognosis is very poor discuss with relatives regarding possible DNR withdrawal of care Qualifiers: Chronicity: acute on chronic
--- NOTE | 2019-10-19 08:51 | RAD REPORT ---
EXAM DESCRIPTION: RAD - Chest Single View - 10/19/2019 8:25 am CLINICAL HISTORY: COPD, shortness of breath, possible pneumonia COMPARISON: October 18 and October 17 portable images, October 18 CT chest TECHNIQUE: AP portable chest image was obtained 0802 hours . FINDINGS: Hyper expanded lung love noted with fibro emphysematous lung changes. This baseline estela shandra is stable. Minimal stranding in the lateral right base has not changed. Pleural and parenchymal o pacification in the left base partially obscuring the heart border and left hemidiaphragm are stable findings. No progressive left base process. Heart size and vasculature are normal. No pneumothorax. Endotracheal tube has not changed position. NG tube is no longer identified. PICC line has not change d position. IMPRESSION: Baseline COPD with left base pleural and parenchymal opacification stable from prior babak ging. No new or progressive cardiopulmonary finding. NG tube appears to have been removed. ET tube and PICC line are unchanged.
[2019-10-19] MEDS: FAMOTIDINE 20 MG/2 ML VIAL IV SCH ×2 (08:56→21:02)
[2019-10-19] MEDS ORDERED: ENOXAPARIN 40 MG/0.4 ML SQ SCH (09:00)
[2019-10-19] MEDS: NA CHLORIDE 0.9% 1,000 ML IV SCH ×2 (10:00→21:02)
--- NOTE | 2019-10-19 10:51 | RAD REPORT ---
EXAM DESCRIPTION: RAD - Chest Single View - 10/18/2019 9:13 pm CLINICAL HISTORY: PICC Placement TECHNIQUE: Single frontal view of the chest is submitted. COMPARISON: None available for comparison FINDINGS: Heart: The cardiothoracic silhouette is within normal limits. Lungs: Left basilar opacification. Minimal right basilar patchy opacity. Mediastinum: Thoracic aortic atherosclerosis. Pleura: Blunting of the left costophrenic angle. Bones: Intact Upper abdomen: Unremarkable Other: Right upper extremity PICC tip projects over the proximal to mid superior vena cava. Endotrach eal tube in place. The tip projects 7.4 cm proximal to the brittany. IMPRESSION: 1. Right upper extremity PICC tip projects over the proximal to mid superior vena cava . 2. Left greater than right basilar opacification (atelectasis and/or infiltrate). Possible small le ft pleural effusion. Electronically signed by: Ibis De Luna MD 10/18/2019 9:45 PM TAXATION INSPECTOR Due to temporary technical issues with the PACS/Fluency reporting system, reports are being signed by the in house radiologist as a courtesy to ensure prompt reporting. The interpreting radiologist is f ully responsible for the content of the report.
[2019-10-19 11:15] LABS: Arterial Blood Carboxyhemoglob 1.4 % (0-1.5); Blood Gas Oxyhemoglobin 89.5 % (94-97); Blood O2 Saturation 91.3 % (92-98.5)
[2019-10-19 11:20] LABS: Arterial Blood Carboxyhemoglob 1.4 % (0-1.5); Blood Gas Oxyhemoglobin 80.1 % (94-97); Blood O2 Saturation 81.7 % (92-98.5)
--- NOTE | 2019-10-19 12:50 | RAD REPORT ---
EXAM DESCRIPTION: RAD - Abdomen 1 View (KUB) - 10/19/2019 12:43 pm CLINICAL HISTORY: Dobhoff placement Pain COMPARISON: No comparisons FINDINGS: Enteric tube tip is likely in the distal stomach, although the tip is not fully included o n the projection.
[2019-10-19] MEDS ORDERED: VITAL AF 1,000 ML BOT RTH SCH (15:00)
--- NOTE | 2019-10-19 17:56 | PN ---
Date of Progress Note: 10/19/2019 Mr. Aldrich was admitted on 10/18/2027 for COPD, elevated troponin, has had nonsustained ventricular tachycardia. He is now on facial BiPAP with adequate saturation. He is do not intubate, planning to become a do not resuscitate. Has not had any further ventricular tachycardia. Echocardiogram showe d normal ejection fraction with severe pulmonary hypertension. Patient is not a candidate for amioda dharmesh because of his severe COPD. We will continue his present regimen for now. NB/MODL Voice ID: [id number] Report ID: [id number]
--- NOTE | 2019-10-20 00:14 | PN ---
Subjective: Patient is intubated and is on ventilator. Review of Systems: Unavailable due to sedation. Physical Examination: Vital Signs: Temperature 98.1, pulse 103, respiratory rate 14, blood pressure 126/82, oxygen saturation 96 on ventilator. HEENT: Normocephalic. Intrabronchial tube in place. Chest: On ventilator breathing, not much wheezing. Heart: Normal S1, S2. Tachycardia. No murmur. Abdomen: Soft, hypoactive bowel sounds. Extremities: No edema. No cyanosis. Neurologic: Unavailable due to sedation. Laboratory Data: WBC 6.6, hemoglobin 12.8, platelet 121. Sodium 144, potassium 4.2, creatinine 1.43, magnesium 2.9. Assessment And Plan: 1. Acute on chronic respiratory failure with hypoxia. This is likely due to chronic obstructive pulmonary disease exacerbation. Chest CTA negative for pulmonary embolism. Patient is intubated and on ventilator. His prognosis is guarded. Leather Splitter is on board. Continue nebulization. Will consider comfortably care per seamstress fitter if not improved. 2. Chronic obstructive pulmonary disease exacerbation, treated with as mentioned above. 3. Elevated troponin is likely due to respiratory failure. 4. Tachycardia with nonsustained ventricular tachycardia. Echo demonstrated normal ejection fraction with severe pulmonary hypertension. Continue current treatment. 5. Acute encephalopathy. Currently, patient is sedated. Overall, this patient's prognosis is guarded. Family will consider comfortable care only if there is no improvement. QT/MODL Voice ID: [id number] Report ID: [id number] ERIC
[2019-10-20] MEDS: LEVALBUTEROL 1.25 MG/3 ML NEB NEB SCH (02:00)
[2019-10-20] MEDS: FENTANYL CITR 100 MCG/2 ML IV PRN (02:00)
[2019-10-20] MEDS: LORazepam 2 MG/ML VIAL IV PRN (02:15)
[2019-10-20] MEDS: METHYLPREDNISOLONE 40 MG INJ IV SCH (02:37)
[2019-10-20] MEDS ORDERED: NOREPINEPHRINE 4mg/D5W 250mL 4 MG/250 ML BAG IV ONE (05:26)
[2019-10-20 05:39] LABS: Absolute Lymphocytes (CBC) 1.7 K/uL (0.7-4.9); Basophils % 0.3 % (0-1.3); Hematocrit 29.4 % (39.6-49.0); Lymphocytes % 34.1 % (15.3-44.8); MPV 8.5 fL (7.6-11.3); RBC Red Blood Cell Count 3.07 M/uL (4.33-5.43)
[2019-10-20 05:46] LABS: Protime INR 1.16
[2019-10-20 05:49] VITALS: O2SAT 94
[2019-10-20 06:00] LABS: Albumin 1.4 g/dL (3.4-5.0); Bilirubin Total 0.4 mg/dL (0.2-1.0); CKMB Creatine Kinase MB 2.2 ng/mL (0.3-3.6); Magnesium 2.1 mg/dL (1.8-2.4); Potassium 3.7 mmol/L (3.5-5.1); Troponin I 0.29 ng/mL (0.0-0.045)
[2019-10-20 06:10] VITALS: BP 130/62; TEMP 97.9
[2019-10-20 09:35] LABS: Platelet Estimate DECR
[2019-10-20 09:36] LABS: Anisocytosis 1+; Blood Morphology Comment NOTED (NOT SEEN); Poikilocytosis 1+; Polychromasia 1+
--- NOTE | 2019-10-20 11:00 | P.DS ---
Discharge Date: 10/20/19 Disposition: Discharge Condition: Reason for Admission: Respiratory failure Consultations: pulmonary Brief History of Present Illness: patient is a 78-year-old gentleman who came to the hospital with respiratory distress. Patient was placed on a BiPAP. Patient was found have severe pulmonary hypertension. Patient initially did not want to be resuscitated however, the patient family change their mind and decided to do a full code for a few days. Pulmonary spoke with the patient regarding this. Patient ended up coding and passing away on the morning of October 20, 2018 at 5:30 a.m.. Patient's family arrived after he had . I was able to speak with the family regarding patient's clinical symptoms at the time of his passing. Hospital Course: Please see HPI Home Medications: Famotidine 1 tab PO DAILY 10/01/16 Ipratropium/Albuterol Sulfate [Combivent Respimat Inhal [place]] 1 puff IH PRN PRN 10/18/19 Umeclidinium [place] [Incruse Ellipta] 1 inh IH DAILY 10/18/19 predniSONE [Deltasone*] 10 mg PO TID 10/18/19 Patient Discharge Instructions: patient on October 20, 2019 at 5:30 a.m. Time spent managing pt's care (in minutes): 40
== END 2019-10-20 05:30 | disposition expired | DRG 208 ==
LOC: ER 21:16 → ERHOLD 10-18 00:08 → 3RD-ICU 10-18 00:37
PROVIDERS: ADMIT Internal Medicine; ATTEND Family Medicine
PROC: 0BH17EZ Insertion of Endotracheal Airway into Trachea, Via Natural or Artificial Opening (ICD-10-PCS; principal; 2019-10-18)
PROC: 5A1945Z Respiratory Ventilation, 24-96 Consecutive Hours (ICD-10-PCS; 2019-10-18)
PROC: 5A09457 Assistance with Respiratory Ventilation, 24-96 Consecutive Hours, Continuous Positive Airway Pressure (ICD-10-PCS; 2019-10-18)
DX: J96.21 Acute and chronic respiratory failure with hypoxia (principal); G93.41 Metabolic encephalopathy; J18.9 Pneumonia, unspecified organism; J44.1 Chronic obstructive pulmonary disease with (acute) exacerbation; I47.2 Ventricular tachycardia; E87.2 Acidosis; J84.10 Pulmonary fibrosis, unspecified; I25.10 Atherosclerotic heart disease of native coronary artery without angina pectoris; Z99.81 Dependence on supplemental oxygen; Z86.73 Personal history of transient ischemic attack (TIA), and cerebral infarction without residual deficits
CPT/HCPCS: 36415; 51702; 71045; 71275; 74018; 80048; 80053; 80076; 81003; 82550; 82553; 82805; 83605; 83690; 83735; 83880; 84100; 84484; 85025; 85379; 85610; 85730; 87040; 87804; 93005; 93306; 93970; 94002; 94003; 94640; 94660; 96365; 96368; 96372; 96375; 99285; J1650; J2704; J2920; J2930; J3010; J3475; J7030; Q9967